=== PATIENT | female | born 1955 | race Caucasian/White ===

== ENCOUNTER 2019-10-29 07:50 | Emergency (ER) | payer OTHER ==
[2019-10-29] MEDS ORDERED: Sodium Chloride 0.9% 10 ML Syringe FLUSH PRN (08:14)
--- NOTE | 2019-10-29 08:28 | EDM.PDOC ---
ED HPI GENERAL MEDICAL PROBLEM - General Chief Complaint: Cardiovascular Problem Stated Complaint: LOW PULSE Time Seen by Provider: 10/29/19 08:09 Source of Information: Reports: Patient History Limitations: Reports: No Limitations - History of Present Illness INITIAL COMMENTS - FREE TEXT/NARRATIVE: The patient presents with a slow heart rate and generalized weakness. This has been going on for a couple days. She is a patient at [facility] and she called them and they told her to come in. She has no chest pain or shortness of breath. This has never happened before. She has no history of heart problems. She does have hypertension and had a history of TIA. She quit smoking about 8 years ago. She said her heart rate was in the 30s last night. She took her pulse with a blood pressure cuff. She has no fever, chills, cough, congestion, runny nose, abdominal pain, nausea or vomiting. Onset: Gradual Duration: Day(s): Severity: Moderate Improves with: Reports: None Worsens with: Reports: None Associated Symptoms: Reports: No Other Symptoms - Related Data Allergies Allergy/AdvReac Type Severity Reaction Status Date / Time Latex, Natural Rubber Allergy Rash Verified 10/29/19 07:59 Tetanus Vaccines and Toxoid Allergy Itching Verified 10/29/19 07:59 timolol Allergy Difficulty Verified 10/29/19 08:00 Breathing Home Meds: Home Meds Betaxolol HCl 1 drop EYEBOTH BID 10/29/19 [History] Brimonidine [Alphagan 0.2% Ophth Soln] 1 drop EYERT DAILY 10/29/19 [History] Latanoprost 1 drop EYERT BEDTIME 10/29/19 [History] Losartan [Cozaar] 25 mg PO DAILY 10/29/19 [History] atorvaSTATin [Lipitor] 40 mg PO DAILY 10/29/19 [History] Past Medical History - Past Health History Medical/Surgical History: Denies Medical/Surgical History Cardiovascular History: Reports: High Cholesterol, Hypertension Respiratory History: Reports: None Gastrointestinal History: Reports: None Genitourinary History: Reports: None 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 Denies: Fever, Chills HEENT: Reports: No Symptoms Respiratory: Reports: No Symptoms Cardiovascular: Reports: Other (Low heart rate) Endocrine: Reports: No Symptoms GI/Abdominal: Reports: No Symptoms : Reports: No Symptoms Musculoskeletal: Reports: No Symptoms ED EXAM, GENERAL - Physical Exam Exam: See Below Exam Limited By: No Limitations General Appearance: Alert, No Apparent Distress Ears: Normal External Exam Nose: Normal Inspection Head: Atraumatic, Normocephalic Neck: Normal Inspection Respiratory/Chest: No Respiratory Distress, Lungs Clear, Normal Breath Sounds Cardiovascular: Regular Rate, Rhythm, No Edema, No Murmur GI/Abdominal: Soft, Non-Tender, No Organomegaly, No Mass Back Exam: Normal Inspection Extremities: Normal Inspection Neurological: Alert, Oriented, No Motor/Sensory Deficits EKG INTERPRETATION EKG Date: 10/29/19 Time: 08:07 Rhythm: Other (3rd degree AV block) Rate (Beats/Min): 40 [place]: Normal P-Wave: Present QRS: Normal ST-T: Normal QT: Normal NH/PQ Interval: 3rd degree AV block Course - Vital Signs Last Recorded V/S: Last Vital Signs Temp 97.8 F 10/29/19 07:57 Pulse 88 10/29/19 07:57 Resp 16 10/29/19 07:57 BP 166/75 H 10/29/19 07:57 Pulse Ox 96 10/29/19 07:57 - Orders/Labs/Meds Orders: Active Orders 24 hr Category Date Time Status Cardiac Monitoring [RC] . DIRECTED Care 10/29/19 08:14 Active EKG Documentation Completion [RC] STAT Care 10/29/19 08:15 Active Peripheral IV Care [RC] . DIRECTED Care 10/29/19 08:15 Active Chest 1V Frontal [CR] Stat Exams 10/29/19 08:15 Ordered COMPREHENSIVE METABOLIC PN,CMP [CHEM] Stat Lab 10/29/19 08:05 Received TROPONIN I [CHEM] Stat Lab 10/29/19 08:05 Received Atropine [Atropine 0.1 MG/ML] Med 10/29/19 08:40 Once 0.5 mg IVPUSH ONETIME ONE Sodium Chloride 0.9% [Saline Flush] Med 10/29/19 08:14 Active 10 ml FLUSH ASDIRECTED PRN Peripheral IV Insertion Adult [OM.PC] Stat Oth 10/29/19 08:14 Ordered Medication Orders Sodium Chloride (Saline Flush) 10 ml FLUSH ASDIRECTED PRN PRN Reason: Keep Vein Open Last Admin: 10/29/19 08:27 Dose: 10 ml Labs: Laboratory Tests 10/29/19 Range/Units 08:05 WBC 7.06 (3.98-10.04) K/mm3 RBC 4.99 (3.98-5.22) M/mm3 Hgb 14.2 (11.2-15.7) gm/dl Hct 43.2 (34.1-44.9) % MCV 86.6 (79.4-94.8) fl MCH 28.5 (25.6-32.2) pg MCHC 32.9 (32.2-35.5) g/dl RDW Std Deviation 45.6 (36.4-46.3) fL Plt Count 255 (182-369) K/mm3 MPV 11.4 (9.4-12.3) fl Neut % (Auto) 67.1 (34.0-71.1) % Lymph % (Auto) 24.5 (19.3-51.7) % [place] % (Auto) 6.9 (4.7-12.5) % Eos % (Auto) 1.1 (0.7-5.8) Baso % (Auto) 0.3 (0.1-1.2) % Neut # (Auto) 4.73 (1.56-6.13) K/mm3 Lymph # (Auto) 1.73 (1.18-3.74) K/mm3 [place] # (Auto) 0.49 H (0.24-0.36) K/mm3 Eos # (Auto) 0.08 (0.04-0.36) K/mm3 Baso # (Auto) 0.02 (0.01-0.08) K/mm3 Meds: Medications Generic Name Dose Route Start Last Admin Trade Name Freq PRN Reason Stop Dose Admin Sodium Chloride 10 ml 10/29/19 08:14 10/29/19 08:27 Saline Flush FLUSH 10 ml ASDIRECTED PRN Administration Keep Vein Open - Re-Assessments/Exams Free Text/Narrative Re-Assessment/Exam: 10/29/19 08:33 I ordered an IV saline lock, EKG, CXR and labs. Her EKG shows a 3rd degree HB at a rate of 40. On the monitor she is up in the 70s most of the time. I called [facility] in [place] and the consulting solution director Dr Flores wanted a copy of the EKG sent to her. 10/29/19 08:40 Dr Flores did accept her on consult and I talked with Dr Bowser the hospitalist call or contact centre manager and he also accepted the patient. Dr Flores did recommend trying some atropine if her heart rate stays low and pacing if that does not help. The patient's heart rate did sty in the 40s and 30s so I gave atropine 0.5mg IV and her heart rate is in the 80s and still a 3rd degree HB. Departure - Departure Time of Disposition: 08:50 Disposition: DC/Tfer to Acute Hospital 02 Reason for Transfer *Q: Other (pacemaker) Condition: Fair Clinical Impression: Third degree heart block Referrals: Eveline Khan MD [Primary Care Provider] - Forms: ED Department Discharge Sepsis Event Note - Evaluation Sepsis Screening Result: No Definite Risk - Focused Exam Vital Signs: Vital Signs Temp Pulse Resp BP Pulse Ox 10/29/19 07:57 97.8 F 88 16 166/75 H 96 Date Exam was Performed: 10/29/19 Time Exam was Performed: 08:40 - My Orders Last 24 Hours: My Active Orders 10/29/19 08:05 COMPREHENSIVE METABOLIC PN,CMP [CHEM] Stat TROPONIN I [CHEM] Stat 10/29/19 08:14 Cardiac Monitoring [RC] . DIRECTED Sodium Chloride 0.9% [Saline Flush] 10 ml FLUSH ASDIRECTED PRN Peripheral IV Insertion Adult [OM.PC] Stat 10/29/19 08:15 EKG Documentation Completion [RC] STAT Peripheral IV Care [RC] . DIRECTED Chest 1V Frontal [CR] Stat 10/29/19 08:40 Atropine [Atropine 0.1 MG/ML] 0.5 mg IVPUSH ONETIME ONE - Assessment/Plan Last 24 Hours: My Active Orders 10/29/19 08:05 COMPREHENSIVE METABOLIC PN,CMP [CHEM] Stat TROPONIN I [CHEM] Stat 10/29/19 08:14 Cardiac Monitoring [RC] . DIRECTED Sodium Chloride 0.9% [Saline Flush] 10 ml FLUSH ASDIRECTED PRN Peripheral IV Insertion Adult [OM.PC] Stat 10/29/19 08:15 EKG Documentation Completion [RC] STAT Peripheral IV Care [RC] . DIRECTED Chest 1V Frontal [CR] Stat 10/29/19 08:40 Atropine [Atropine 0.1 MG/ML] 0.5 mg IVPUSH ONETIME ONE
[2019-10-29] MEDS ORDERED: Atropine 0.1 MG/ML 10 ML Syringe IVPUSH ONE (08:40)
[2019-10-29] MEDS ORDERED: Atropine 0.1 MG/ML 10 ML Syringe ONE (08:41)
--- NOTE | 2019-10-29 09:10 | CR ---
Chest: Portable view of the chest was obtained. Comparison: Prior chest x-ray of 05/21/18. Heart size is within normal limits for portable technique. Tortuous thoracic aorta is seen. Lungs are clear with no acute parenchymal change. Bony structures are grossly intact. Impression: 1. Nothing acute is appreciated on portable chest x-ray. Diagnostic code #1 This report was dictated in MDT
== END 2019-10-29 09:40 ==
LOC: JD.ED 07:50
DX: I44.2 Atrioventricular block, complete (principal); I10 Essential (primary) hypertension; E78.00 Pure hypercholesterolemia, unspecified; Z86.73 Personal history of transient ischemic attack (TIA), and cerebral infarction without residual deficits; Z87.891 Personal history of nicotine dependence; Z91.040 Latex allergy status; Z88.7 Allergy status to serum and vaccine; Z88.8 Allergy status to other drugs, medicaments and biological substances; Z79.899 Other long term (current) drug therapy
CPT/HCPCS: 36415; 71045; 80053; 84484; 85025; 93005; 96374; 99285; J0461

== ENCOUNTER 2019-11-13 16:49 | Emergency (ER) | payer OTHER ==
--- NOTE | 2019-11-13 17:06 | EDM.PDOC ---
ED HPI GENERAL MEDICAL PROBLEM - General Chief Complaint: Chest Pain Stated Complaint: CHEST PAIN Time Seen by Provider: 11/13/19 17:04 Source of Information: Reports: Patient History Limitations: Reports: No Limitations - History of Present Illness INITIAL COMMENTS - FREE TEXT/NARRATIVE: 64-year-old female attends the ED just generally because she is not feeling well. She reports she was out at a garage sale and had bent over to look at something when she suddenly developed mid central chest pain that radiated up into her neck and jaw. She believes this lasted for about 2 to 3 minutes and then dissipated on its own. However since that time she is not felt well. Of note the patient had a atrial sensing ventricular pacemaker placed 2 weeks ago due to complete heart block. Before that she been extremely fatigued tired and played out very easily. Denies feeling short of breath. Denies cough or any pleuritic chest pain. Not dizzy or lightheaded. At the time she was seen in the ED she was completely pain-free. She estimates that she started to feel this Saturday and mid chest discomfort about 1530 hrs. today. Ports no reflux. She never takes Tums or Rolaids. Last meal was at noon today. 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 (see below) (None.) - Related Data Allergies Allergy/AdvReac Type Severity Reaction Status Date / Time Latex, Natural Rubber Allergy Severe Rash Verified 11/13/19 16:54 Tetanus Vaccines and Toxoid Allergy Severe Itching Verified 11/13/19 16:54 timolol Allergy Severe Difficulty Verified 11/13/19 16:54 Breathing Home Meds: Home Meds Betaxolol HCl 1 drop EYEBOTH BID 10/29/19 [History] Brimonidine [Alphagan 0.2% Ophth Soln] 1 drop EYERT DAILY 10/29/19 [History] Latanoprost 1 drop EYERT BEDTIME 10/29/19 [History] Losartan [Cozaar] 25 mg PO DAILY 10/29/19 [History] atorvaSTATin [Lipitor] 40 mg PO DAILY 10/29/19 [History] Aspirin 325 mg PO DAILY 11/13/19 [History] Past Medical History - Past Health History Medical/Surgical History: Denies Medical/Surgical History HEENT History: Reports: Glaucoma (Audible drops for glaucoma in both eyes.) Cardiovascular History: Reports: High Cholesterol, Hypertension, Pacemaker (Pacemaker placed 2 weeks ago due to complete heart block) Respiratory History: Reports: None Gastrointestinal History: Reports: None Genitourinary History: Reports: None OFFICE SUPPORT SPECIALIST History: Reports: None Musculoskeletal History: Reports: None Neurological History: Reports: TIA - Past Surgical History HEENT Surgical History: Reports: Cataract Surgery, Other (See Below) Other HEENT Surgeries/Procedures: dental implants Social & Family History - Tobacco Use Smoking Status *Q: Former Smoker Used Tobacco, but Quit: Yes Month/Year Tobacco Last Used: 2011 - Caffeine Use Caffeine Use: Reports: Coffee - Recreational Drug Use Recreational Drug Use: No - Living Situation & Occupation Living situation: Reports: (Self-employed) Occupation: Employed ED ROS GENERAL - Review of Systems Review Of Systems: See Below Constitutional: Reports: Fatigue (More fatigued today than she has been.). 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 Lasted about 2 minutes), Blood Pressure Problem, Other (Pacemaker placed left upper anterior chest). Denies: Claudication, Dyspnea on Exertion, Edema, Lightheadedness, Orthopnea, Palpitations Endocrine: Reports: Fatigue GI/Abdominal: Reports: No Symptoms : Reports: Frequency, Incontinence Musculoskeletal: Reports: Back Pain Skin: Reports: No Symptoms Neurological: Reports: No Symptoms Psychiatric: Reports: No Symptoms Hematologic/Lymphatic: Reports: No Symptoms ED EXAM, GENERAL - Physical Exam Exam: See Below Exam Limited By: No Limitations General Appearance: Alert, WD/WN, Anxious, Other (Mildly anxious. She is 36.9 heart rate 71 respiratory is 13 BP 168/88 . Pulse ox is 97%.) Eye Exam: Bilateral Eye: Normal Inspection, PERRL Neck: No: Carotid Bruit, Lymphadenopathy (L), Lymphadenopathy (R), Thyromegaly Respiratory/Chest: No Respiratory Distress, Lungs Clear, Normal Breath Sounds, No Accessory Muscle Use, Other (Pacemaker site left upper anterior chest placed 2 weeks ago is healing very well.) Cardiovascular: Normal Peripheral Pulses, Regular Rate, Rhythm, No Edema, No Gallop, No Murmur, No Rub, Other (Monitor monitor shows ventricular paced rhythm at 70/min.) Peripheral Pulses: 2+: Posterior Tibial (L), Posterior Tibial (R), Dorsalis Pedis (L), Dorsalis Pedis (R), 3+: Carotid (L), Carotid (R) GI/Abdominal: Normal Bowel Sounds, Soft, Non-Tender, No Organomegaly, No Abnormal Bruit, No Mass, Pelvis Stable, Other (No surgical scars.) Back Exam: Normal Inspection, Full Range of Motion. No: CVA Tenderness (L), CVA Tenderness (R) Extremities: Normal Inspection, Normal Range of Motion, Non-Tender, Normal Capillary Refill Neurological: Alert, Oriented, CN II-XII Intact, Normal Cognition Psychiatric: Normal Affect (Anxious), Normal Mood, Anxious Skin Exam: Warm, Dry, Intact, Normal Color, No Rash EKG INTERPRETATION EKG Date: 11/13/19 Time: 16:52 Rhythm: Other (Atrial sensed -ventricular paced rhythm at 70/min) Rate (Beats/Min): 70 EKG Interpretation Comments: Regular paced rhythm at 70/min. No further analysis attempted. Course - Vital Signs Last Recorded V/S: Last Vital Signs Temp 36.9 C 11/13/19 16:54 Pulse 61 11/13/19 18:20 Resp 16 11/13/19 18:20 BP 121/81 11/13/19 18:20 Pulse Ox 94 L 11/13/19 18:20 - Orders/Labs/Meds Labs: Laboratory Tests 11/13/19 11/13/19 11/13/19 Range/Units 17:34 17:34 17:34 WBC 7.41 (3.98-10.04) K/mm3 RBC 5.02 (3.98-5.22) M/mm3 Hgb 14.4 (11.2-15.7) gm/dl Hct 43.2 (34.1-44.9) % MCV 86.1 (79.4-94.8) fl MCH 28.7 (25.6-32.2) pg MCHC 33.3 (32.2-35.5) g/dl RDW Std Deviation 42.5 (36.4-46.3) fL Plt Count 276 (182-369) K/mm3 MPV 10.4 (9.4-12.3) fl Neut % (Auto) 55.4 (34.0-71.1) % Lymph % (Auto) 32.4 (19.3-51.7) % [place] % (Auto) 9.7 (4.7-12.5) % Eos % (Auto) 1.6 (0.7-5.8) Baso % (Auto) 0.8 (0.1-1.2) % Neut # (Auto) 4.10 (1.56-6.13) K/mm3 Lymph # (Auto) 2.40 (1.18-3.74) K/mm3 [place] # (Auto) 0.72 H (0.24-0.36) K/mm3 Eos # (Auto) 0.12 (0.04-0.36) K/mm3 Baso # (Auto) 0.06 (0.01-0.08) K/mm3 D-Dimer, Quantitative 1.49 H (0.19-0.50) mg/L Sodium 144 (136-145) mEq/L Potassium 4.0 (3.5-5.1) mEq/L Chloride 108 H (98-107) mEq/L Carbon Dioxide 24 (21-32) mEq/L Anion Gap 16.0 H (5-15) BUN 13 (7-18) mg/dL Creatinine 1.0 (0.55-1.02) mg/dL Est Cr Clr Drug Dosing 53.91 mL/min Estimated GFR (MDRD) 56 (>60) mL/min BUN/Creatinine Ratio 13.0 L (14-18) Glucose 88 (80-115) mg/dL Calcium 9.3 (8.5-10.1) mg/dL Magnesium 2.2 (1.8-2.4) mg/dl Total Bilirubin 0.4 (0.2-1.0) mg/dL AST 26 (15-37) U/L ALT 50 (14-59) U/L Alkaline Phosphatase 165 H (46-116) U/L CK-MB (CK-2) 1.8 (0-3.6) ng/ml Troponin I < 0.017 (0.00-0.056) ng/mL C-Reactive Protein < 0.2 (<1.0) mg/dL NT-Pro-B Natriuret Pep (0-125) pg/mL Total Protein 7.0 (6.4-8.2) g/dl Albumin 4.0 (3.4-5.0) g/dl Globulin 3.0 gm/dL Albumin/Globulin Ratio 1.3 (1-2) 11/13/19 Range/Units 17:34 WBC (3.98-10.04) K/mm3 RBC (3.98-5.22) M/mm3 Hgb (11.2-15.7) gm/dl Hct (34.1-44.9) % MCV (79.4-94.8) fl MCH (25.6-32.2) pg MCHC (32.2-35.5) g/dl RDW Std Deviation (36.4-46.3) fL Plt Count (182-369) K/mm3 MPV (9.4-12.3) fl Neut % (Auto) (34.0-71.1) % Lymph % (Auto) (19.3-51.7) % [place] % (Auto) (4.7-12.5) % Eos % (Auto) (0.7-5.8) Baso % (Auto) (0.1-1.2) % Neut # (Auto) (1.56-6.13) K/mm3 Lymph # (Auto) (1.18-3.74) K/mm3 [place] # (Auto) (0.24-0.36) K/mm3 Eos # (Auto) (0.04-0.36) K/mm3 Baso # (Auto) (0.01-0.08) K/mm3 D-Dimer, Quantitative (0.19-0.50) mg/L Sodium (136-145) mEq/L Potassium (3.5-5.1) mEq/L Chloride (98-107) mEq/L Carbon Dioxide (21-32) mEq/L Anion Gap (5-15) BUN (7-18) mg/dL Creatinine (0.55-1.02) mg/dL Est Cr Clr Drug Dosing mL/min Estimated GFR (MDRD) (>60) mL/min BUN/Creatinine Ratio (14-18) Glucose (80-115) mg/dL Calcium (8.5-10.1) mg/dL Magnesium (1.8-2.4) mg/dl Total Bilirubin (0.2-1.0) mg/dL AST (15-37) U/L ALT (14-59) U/L Alkaline Phosphatase (46-116) U/L CK-MB (CK-2) (0-3.6) ng/ml Troponin I (0.00-0.056) ng/mL C-Reactive Protein (<1.0) mg/dL NT-Pro-B Natriuret Pep 65 (0-125) pg/mL Total Protein (6.4-8.2) g/dl Albumin (3.4-5.0) g/dl Globulin gm/dL Albumin/Globulin Ratio (1-2) Meds: Medications Discontinued Medications Generic Name Dose Route Start Last Admin Trade Name Freq PRN Reason Stop Dose Admin Sodium Chloride 100 mls @ 60 mls/hr 11/13/19 19:00 11/13/19 19:14 Normal Saline IV 60 mls/hr ASDIRECTED KAI Administration Iopamidol 100 ml 11/13/19 19:00 11/13/19 19:14 [id number] (76%) IVPUSH 11/13/19 19:01 100 ml ONETIME ONE Administration Sodium Chloride 10 ml 11/13/19 19:00 11/13/19 19:14 Saline Flush FLUSH 10 ml ONETIME PRN Administration Keep Vein Open - Radiology Interpretation Free Text/Narrative:: 64-year-old female presents to the ED for evaluation of transient central chest pain that radiated up into her neck and jaw about 1530 to 1540 hours this afternoon. She was bending over at the time and a garage sale looking at something when this occurred. She developed the chest pain when she was bending over and as she stood up it seemed to radiate up into her jaw and neck. It lasted for only a minute or 2 and then dissipated. However since that time she is not felt quite well. She did have a pacemaker placed 2 weeks ago due to complete heart block and was feeling overall better in terms of stamina compared to before it was placed. ECG of course shows 100% paced rhythm at 70/min. The rest of the examination is normal. Plan routine labs including cardiac markers and d-dimer. 1 view chest x-ray to be done. - Re-Assessments/Exams Free Text/Narrative Re-Assessment/Exam: 11/13/19 18:02 chest x-ray performed is clear. Minimal atelectasis within the left lung base cardiac silhouette is normal. Tortuous thoracic aorta. (Liana tony) atrial and ventricular pacemaker wires appear to be in the appropriate position. 11/13/19 18:03 Hematology reveals a normal white count at 7.41. 55% neutrophils. Hemoglobin 14.4 with hematocrit of 43.2. Platelet count 276,000. 11/13/19 18:20 d-dimer is reported to be elevated at 1.49. Her renal function and the remainder of her chemistry is not yet reported. 11/13/19 18:29 Chemistry is back. Sodium is 144 with a potassium of 4.0. Chloride is 108 with a bicarb of 24. Anion gap is slightly elevated at 16.0. BUN is 13 with a creatinine of 1.0 GFR is 56. Therefore no contraindication to CT pulmonary angiogram. Glucose is 88 with a calcium of 9.3. Magnesium 2.2. Liver function normal other than alk phosphatase slightly elevated at 165. CK- MB fraction 1.8 troponin I is less than 0.017. C-reactive protein less than 0.2. BNP is 65. Total protein 7.0 with an albumin fraction of 4.0. 11/13/19 18:35 Discussed the findings with the patient and her . The elevated d-dimer is most likely from recent pacemaker placement although it was 2 weeks ago. She has no bruising around the pacemaker site. Will proceed with CT pulmonary angiogram to rule out PE. O2 sats are staying around 94% on average. 11/13/19 19:36 CT pulmonary angiogram has been completed. I assessment I do not see any evidence of pulmonary emboli. There is moderate cardiomegaly. Thoracic aorta is mildly tortuous but not aneurysmal. Old hiatal hernia appreciated. No pleural effusions. Reassured and she will be discharged to home. I suspect the cause of her short-lived transient chest pain while bending over was likely GI related i.e. hiatal hernia causing some esophageal spasm more pain at the lower esophageal sphincter referring the pain up into her neck and throat transiently. No changes made to any of her medications. Departure - Departure Time of Disposition: 19:37 Disposition: Home, Self-Care 01 Condition: Fair Clinical Impression: Non-cardiac chest pain Instructions: Nonspecific Chest Pain, Adult Referrals: Eveline Khan MD [Primary Care Provider] - Forms: ED Department Discharge Additional Instructions: Evaluation in the emergency room today in regards to development of central chest pressure discomfort that radiated up into the neck and jaw after bending over to look at something on a garage sale. Pain lasted 1 to 2 minutes and then dissipated. By history this sounds like this was GI related I have the stomach slipping up into the opening where the food pipe traverses the diaphragm will refer pain up into the neck and throat and central chest or the esophagus itself could go into spasm and cause similar type pain. The fact that the pain was fleeting is against heart related illness as blood clot in the artery causes persistent and worsening pain over time. Lab test would prove that there was no evidence of heart related illness. Chest x-ray is within normal limits. This shows her pacemaker wires to be in normal position. The only abnormality was a slightly elevated d-dimer which is a measuring stick for blood clotting with it being almost 3 times normal decision made to pursue CT pulmonary angiogram to make sure there was no blood clot in your lung following pacemaker insertion. T of the chest proved to be negative for any blood clot in the lungs. This time suggest no changes in diet or medication. Activity as tolerated. The only thing you should watch out for is carbonated beverages such as soda pop that might aggravate a hiatal hernia. Sepsis Event Note (ED) - Evaluation Sepsis Screening Result: No Definite Risk
--- NOTE | 2019-11-13 18:52 | CR ---
Chest: PA view of the chest was obtained. Comparison: Prior chest x-ray of 10/29/19. Heart size is normal. Tortuous thoracic aorta is seen. Bichamber pacemaker is noted. Minimal atelectasis within the left lung base is seen. Lungs otherwise are clear. Bony structures are grossly intact. Impression: 1. Minimal atelectasis within the left lung base. 2. Nothing acute is seen. Diagnostic code #2 Study was dictated in MDT
[2019-11-13] MEDS ORDERED: Iopamidol 755 Mg/ML 100 ML Bottle IVPUSH ONE (19:00)
[2019-11-13] MEDS ORDERED: Sodium Chloride 0.9% 100 ML IV SCH (19:00)
[2019-11-13] MEDS ORDERED: Sodium Chloride 0.9% 10 ML Syringe FLUSH PRN (19:00)
--- NOTE | 2019-11-13 19:46 | CT ---
CT chest Technique: Multiple axial sections through the chest were obtained. Intravenous contrast was utilized. Study has been performed as a pulmonary interim protocol. Comparison: Prior chest CT study of 05/06/13. Findings: Pulmonary arteries are well-opacified. No filling defects are seen to indicate pulmonary embolism. Artifact is noted from pacemaker. Ascending aorta is ectatic at 3.4 cm. Heart size is slightly generous. Visualized upper abdominal structures show nothing acute. Minimal linear scarring is seen within both lung bases. No acute parenchymal change is appreciated. No pleural effusions are seen. Bone window settings were reviewed. No acute osseous finding is seen. Impression: 1. No findings of pulmonary embolism. 2. Slight linear scarring within both lung bases. 3. Nothing acute is appreciated on CT study of the chest. Diagnostic code #2 Study was dictated in MDT
== END 2019-11-13 19:51 | disposition home or self-care (01) ==
LOC: JD.ED 16:49
DX: R07.89 Other chest pain (principal); I10 Essential (primary) hypertension; E78.00 Pure hypercholesterolemia, unspecified; Z87.891 Personal history of nicotine dependence; Z91.040 Latex allergy status; Z88.7 Allergy status to serum and vaccine; Z88.8 Allergy status to other drugs, medicaments and biological substances; Z79.899 Other long term (current) drug therapy; Z79.82 Long term (current) use of aspirin; Z95.0 Presence of cardiac pacemaker
CPT/HCPCS: 36415; 71045; 71275; 80053; 82553; 83735; 83880; 84484; 85025; 85379; 86140; 99285; J7050; Q9967

== ENCOUNTER 2021-04-02 15:33 | Inpatient (IN) | payer MEDICARE, OTHER ==
[2021-04-02] MEDS ORDERED: Sodium Chloride 0.9% 10 ML Syringe FLUSH PRN (16:42)
--- NOTE | 2021-04-02 17:00 | EDM.PDOC ---
ED HPI GENERAL MEDICAL PROBLEM - General Chief Complaint: Respiratory Problem Stated Complaint: POSS COVID Time Seen by Provider: 04/02/21 16:17 Source of Information: Reports: Patient, RN Notes Reviewed - History of Present Illness INITIAL COMMENTS - FREE TEXT/NARRATIVE: 66 yr old female has been ill for about 8 to 10 days. Her has been ill for about 10 days, states his has also been ill that "whole time". She admits to feeling weak, dizzy, sleeping a lot with frequent cough. Has not been aware of being short of breath but sats on arrival to ED 79% room air. She has had nausea, no vomiting or diarrhea. Unvaccinated - Related Data Allergies Allergy/AdvReac Type Severity Reaction Status Date / Time Latex, Natural Rubber Allergy Severe Rash Verified 04/02/21 16:24 Tetanus Vaccines and Toxoid Allergy Severe Itching Verified 04/02/21 16:24 timolol Allergy Severe Difficulty Verified 04/02/21 16:24 Breathing Home Meds: Home Meds Losartan [Cozaar] 25 mg PO DAILY 10/29/19 [History] atorvaSTATin [Lipitor] 40 mg PO DAILY 10/29/19 [History] Aspirin 325 mg PO DAILY 11/13/19 [History] Metoprolol Succinate 25 mg PO TID 04/02/21 [History] atorvaSTATin Calcium [Atorvastatin Calcium] 40 mg PO BEDTIME 04/02/21 [History] Past Medical History - Past Health History Medical/Surgical History: Denies Medical/Surgical History HEENT History: Reports: Glaucoma Cardiovascular History: Reports: High Cholesterol, Hypertension, Pacemaker Respiratory History: Reports: None Gastrointestinal History: Reports: None Genitourinary History: Reports: None IT COORDINATOR History: Reports: None Musculoskeletal History: Reports: None Neurological History: Reports: TIA - Past Surgical History HEENT Surgical History: Reports: Cataract Surgery, Other (See Below) Other HEENT Surgeries/Procedures: dental implants Social & Family History - Tobacco Use Tobacco Use Status *Q: Never Tobacco User - Caffeine Use Caffeine Use: Reports: Coffee - Recreational Drug Use Recreational Drug Use: No - Living Situation & Occupation Living situation: Reports: (Self-employed) Occupation: Employed ED ROS GENERAL - Review of Systems Review Of Systems: See Below Constitutional: Reports: Fever, Chills HEENT: Reports: No Symptoms Respiratory: Reports: Shortness of Breath (mild), Cough. Denies: Wheezing Cardiovascular: Denies: Chest Pain GI/Abdominal: Reports: Nausea. Denies: Abdominal Pain, Vomiting Musculoskeletal: Reports: Other (generalized achiness). Denies: Shoulder Pain, Arm Pain Skin: Reports: No Symptoms Neurological: Reports: Dizziness, Headache, Weakness (weakness, generalized) ED EXAM, GENERAL - Physical Exam Exam: See Below General Appearance: Alert, No Apparent Distress (on oxygen) Throat/Mouth: Normal Inspection Neck: Supple Respiratory/Chest: Lungs Clear, Respiratory Distress (mild tachypnea). No: Rales, Rhonchi, Wheezing Cardiovascular: Regular Rate, Rhythm GI/Abdominal: Soft, Non-Tender Back Exam: No: CVA Tenderness (L), CVA Tenderness (R) Extremities: Normal Inspection, Normal Range of Motion. No: Pedal Edema, Leg Pain, Increased Warmth Neurological: Alert, Oriented, No Motor/Sensory Deficits Skin Exam: Warm, Dry, Normal Color Course - Vital Signs Last Recorded V/S: Last Vital Signs Temp 100.1 F 04/02/21 16: Pulse 96 04/02/21 16:21 Resp 18 04/02/21 16:21 BP 118/73 04/02/21 16:21 Pulse Ox 92 L 04/02/21 18:44 - Orders/Labs/Meds Orders: Active Orders 24 hr Category Date Time Status Oxygen Therapy [RC] ASDIRECTED Care 04/02/21 18:33 Active Peripheral IV Care [RC] . DIRECTED Care 04/02/21 16:43 Active Sodium Chloride 0.9% [Saline Flush] Med 04/02/21 16:42 Active 10 ml FLUSH ASDIRECTED PRN Peripheral IV Insertion Adult [OM.PC] Stat Oth 04/02/21 16:43 Ordered Medication Orders Sodium Chloride (Sodium Chloride 0.9% 10 Ml Syringe) 10 ml FLUSH ASDIRECTED PRN PRN Reason: Keep Vein Open Last Admin: 04/02/21 17:33 Dose: 10 ml Documented by: CHARLES Labs: Laboratory Tests 04/02/21 04/02/21 04/02/21 Range/Units 16:18 17:05 17:05 WBC 8.08 (3.98-10.04) K/mm3 RBC 5.12 (3.98-5.22) M/mm3 Hgb 14.2 (11.2-15.7) gm/dl Hct 41.6 (34.1-44.9) % MCV 81.3 D (79.4-94.8) fl MCH 27.7 (25.6-32.2) pg MCHC 34.1 (32.2-35.5) g/dl RDW Std Deviation 40.6 (36.4-46.3) fL Plt Count 215 (182-369) K/mm3 MPV 9.6 (9.4-12.3) fl Neut % (Auto) 83.3 H (34.0-71.1) % Lymph % (Auto) 10.8 L (19.3-51.7) % [place] % (Auto) 5.7 (4.7-12.5) % Eos % (Auto) 0 L (0.7-5.8) Baso % (Auto) 0.1 (0.1-1.2) % Neut # (Auto) 6.73 H (1.56-6.13) K/mm3 Lymph # (Auto) 0.87 L (1.18-3.74) K/mm3 [place] # (Auto) 0.46 H (0.24-0.36) K/mm3 Eos # (Auto) 0.00 L (0.04-0.36) K/mm3 Baso # (Auto) 0.01 (0.01-0.08) K/mm3 Manual Slide Review D-Dimer, Quantitative (0.19-0.50) mg/L Sodium (136-145) mEq/L Potassium (3.5-5.1) mEq/L Chloride (98-107) mEq/L Carbon Dioxide (21-32) mEq/L Anion Gap (5-15) BUN (7-18) mg/dL Creatinine (0.55-1.02) mg/dL Est Cr Clr Drug Dosing mL/min Estimated GFR (MDRD) (>60) mL/min BUN/Creatinine Ratio (14-18) Glucose (70-99) mg/dL Calcium (8.5-10.1) mg/dL Total Bilirubin (0.2-1.0) mg/dL AST (15-37) U/L ALT (14-59) U/L Alkaline Phosphatase (46-116) U/L C-Reactive Protein 8.7 H* (<1.0) mg/dL Total Protein (6.4-8.2) g/dl Albumin (3.4-5.0) g/dl Globulin gm/dL Albumin/Globulin Ratio (1-2) Influenza Type A RNA Negative (NEGATIVE) Influenza Type B RNA Negative (NEGATIVE) SARS-CoV-2 RNA (QUINN) Positive H (NEGATIVE) 04/02/21 04/02/21 Range/Units 17:05 17:05 WBC (3.98-10.04) K/mm3 RBC (3.98-5.22) M/mm3 Hgb (11.2-15.7) gm/dl Hct (34.1-44.9) % MCV (79.4-94.8) fl MCH (25.6-32.2) pg MCHC (32.2-35.5) g/dl RDW Std Deviation (36.4-46.3) fL Plt Count (182-369) K/mm3 MPV (9.4-12.3) fl Neut % (Auto) (34.0-71.1) % Lymph % (Auto) (19.3-51.7) % [place] % (Auto) (4.7-12.5) % Eos % (Auto) (0.7-5.8) Baso % (Auto) (0.1-1.2) % Neut # (Auto) (1.56-6.13) K/mm3 Lymph # (Auto) (1.18-3.74) K/mm3 [place] # (Auto) (0.24-0.36) K/mm3 Eos # (Auto) (0.04-0.36) K/mm3 Baso # (Auto) (0.01-0.08) K/mm3 Manual Slide Review D-Dimer, Quantitative 1.43 H (0.19-0.50) mg/L Sodium 128 L D (136-145) mEq/L Potassium 3.7 (3.5-5.1) mEq/L Chloride 93 L D (98-107) mEq/L Carbon Dioxide 24 (21-32) mEq/L Anion Gap 14.7 (5-15) BUN 13 (7-18) mg/dL Creatinine 1.0 (0.55-1.02) mg/dL Est Cr Clr Drug Dosing 50.47 mL/min Estimated GFR (MDRD) 56 (>60) mL/min BUN/Creatinine Ratio 13.0 L (14-18) Glucose 101 H (70-99) mg/dL Calcium 8.0 L (8.5-10.1) mg/dL Total Bilirubin 0.7 (0.2-1.0) mg/dL AST 64 H (15-37) U/L ALT 41 (14-59) U/L Alkaline Phosphatase 89 (46-116) U/L C-Reactive Protein (<1.0) mg/dL Total Protein 6.6 (6.4-8.2) g/dl Albumin 3.0 L (3.4-5.0) g/dl Globulin 3.6 gm/dL Albumin/Globulin Ratio 0.8 L (1-2) Influenza Type A RNA (NEGATIVE) Influenza Type B RNA (NEGATIVE) SARS-CoV-2 RNA (QUINN) (NEGATIVE) Meds: Medications Generic Name Dose Route Start Last Admin Trade Name Freq PRN Reason Stop Dose Admin Sodium Chloride 10 ml 04/02/21 16:42 04/02/21 17:33 Sodium Chloride 0.9% 10 Ml Syringe FLUSH 10 ml ASDIRECTED PRN Administration Keep Vein Open Discontinued Medications Generic Name Dose Route Start Last Admin Trade Name Freq PRN Reason Stop Dose Admin Dexamethasone 6 mg 04/02/21 18:53 04/02/21 19:31 Dexamethasone 4 Mg/Ml 5 Ml Mdv IV 04/02/21 18:54 6 mg ONETIME ONE Administration - Re-Assessments/Exams Free Text/Narrative Re-Assessment/Exam: 04/02/21 19:34. WBC 8,100, CXR shows increased perihilar markings bila. CRP 8.7. DD 1.43. Cov. Positive. O2 79 % on arrival room air. sats came up to 92 % initially on 6 L NC and than dropped to mid 80's. RT did put her on high flow O2. sats 92 % with 35 L fiO2. Will admit for further treatment. Dex. 6 mg IV ordered. Departure - Departure Time of Disposition: 18:40 Disposition: Home, Self-Care 01 Condition: Serious Clinical Impression: Pneumonia due to COVID-19 virus, Hypoxia, Hyponatremia - Discharge Information Referrals: PCP,Not In Area [Primary Care Provider] - Forms: ED Department Discharge Sepsis Event Note (ED) - Evaluation Sepsis Screening Result: No Definite Risk - Focused Exam Vital Signs: Vital Signs Temp Pulse Resp BP Pulse Ox Pulse Ox Pulse Ox 04/02/21 18:44 92 L 04/02/21 18:31 93 L 04/02/21 18:25 86 L 04/02/21 18:24 88 L 04/02/21 18:23 86 L 04/02/21 16:21 100.1 F 96 18 118/73 79 L ED Communication - Discussed Case With (1) Discussed Case With (1): Admitting Provider (Dr Ordaz, decision to admit at about 18:40) - My Orders Last 24 Hours: My Active Orders 04/02/21 16:42 Sodium Chloride 0.9% [Saline Flush] 10 ml FLUSH ASDIRECTED PRN 04/02/21 16:43 Peripheral IV Care [RC] . DIRECTED Peripheral IV Insertion Adult [OM.PC] Stat 04/02/21 18:33 Oxygen Therapy [RC] ASDIRECTED - Assessment/Plan Last 24 Hours: My Active Orders 04/02/21 16:42 Sodium Chloride 0.9% [Saline Flush] 10 ml FLUSH ASDIRECTED PRN 04/02/21 16:43 Peripheral IV Care [RC] . DIRECTED Peripheral IV Insertion Adult [OM.PC] Stat 04/02/21 18:33 Oxygen Therapy [RC] ASDIRECTED
[2021-04-02 17:23] LABS: CORONAVIRUS COVID-19 NAA POSITIVE (NEGATIVE)
--- NOTE | 2021-04-02 17:48 | CR ---
Chest: Frontal view of the chest was obtained. Comparison: Prior chest x-ray of 11/13/[address] also from 11/13/19. Heart size and mediastinum are within normal limits. Perihilar markings are increased on the left side. Perihilar markings are also minimally increased on the right side. Bony structures show nothing acute. Pacemaker is noted. Impression: 1. Findings suspicious for mild bilateral bronchitis, worse on the left side. 2. Other incidental findings as noted above. Diagnostic code #3
[2021-04-02] MEDS ORDERED: Dexamethasone 4 MG/ML 5 ML MDV IV ONE (18:53)
[2021-04-02] MEDS ORDERED: Ondansetron 4 MG/2 ML SDV IV PRN (20:49)
[2021-04-02] MEDS ORDERED: oxyCODONE 5 MG Tab PO PRN (20:49)
[2021-04-02] MEDS ORDERED: Metoprolol Succinate 25 MG Tab.ER PO SCH (21:00)
[2021-04-02] MEDS ORDERED: REMDESIVIR 200 MG in Sodium Chloride 0.9% 250 ML IV ONE (21:00)
--- NOTE | 2021-04-02 21:01 | PCM.HP.2 ---
H&P History of Present Illness - General Date of Service: 04/02/21 Admit Problem/Dx: Admission Diagnosis/Problem Admission Diagnosis/Problem Pneumonia - History of Present Illness Initial Comments - Free Text/Narative: 66-year-old female whose developed COVID-19 14 days ago started becoming fatigued around 11 days ago. She states over the last couple of days she has had increasing fatigue, weakness, dizziness, and cough. She denies any fever or chills or shortness of breath. Her today talked her into coming to the emergency department after standing up and becoming dizzy. Patient was not vaccinated against COVID-19. Oxygen saturations on arrival to the emergency department were 79%. Chest x-ray showed mild bilateral bronchitis worse on the left. No significant findings consistent with COVID-19 pneumonia. Patient is requiring high flow nasal cannula at 35 L and 50% FiO2. She stopped smoking in 2011. Patient states that she does have a pacemaker but no history of coronary disease or myocardial infarction. Past medical history includes hypertension, hyperlipidemia, glaucoma. - Related Data Allergies/Adverse Reactions: Allergies Allergy/AdvReac Type Severity Reaction Status Date / Time Latex, Natural Rubber Allergy Severe Rash Verified 04/02/21 16:24 Tetanus Vaccines and Toxoid Allergy Severe Itching Verified 04/02/21 16:24 timolol Allergy Severe Difficulty Verified 04/02/21 16:24 Breathing Home Medications: Home Meds Losartan [Cozaar] 25 mg PO DAILY 10/29/19 [History] atorvaSTATin [Lipitor] 40 mg PO DAILY 10/29/19 [History] Aspirin 325 mg PO DAILY 11/13/19 [History] Metoprolol Succinate 25 mg PO TID 04/02/21 [History] atorvaSTATin Calcium [Atorvastatin Calcium] 40 mg PO BEDTIME 04/02/21 [History] Past Medical History - Past Health History Medical/Surgical History: Denies Medical/Surgical History HEENT History: Reports: Glaucoma Cardiovascular History: Reports: High Cholesterol, Hypertension, Pacemaker Respiratory History: Reports: None Gastrointestinal History: Reports: None Genitourinary History: Reports: None CHECKER DUMP GROUNDS History: Reports: None Musculoskeletal History: Reports: None Neurological History: Reports: TIA - Past Surgical History HEENT Surgical History: Reports: Cataract Surgery, Other (See Below) Other HEENT Surgeries/Procedures: dental implants Social & Family History - Tobacco Use Tobacco Use Status *Q: Never Tobacco User - Caffeine Use Caffeine Use: Reports: Coffee - Recreational Drug Use Recreational Drug Use: No - Living Situation & Occupation Living situation: Reports: (Self-employed) Occupation: Employed H&P Review of Systems - Review of Systems: Review Of Systems: Comprehensive ROS is negative, except as noted in HPI. Exam - Exam Exam: See Below - Vital Signs Vital Signs: Last Vital Signs Temp 100.1 F 04/02/21 16:21 Pulse 96 04/02/21 16:21 Resp 18 04/02/21 16:21 BP 118/73 04/02/21 16:21 Pulse Ox 92 L 04/02/21 18:44 Weight: 180 lb - Exam Quality Assessment: Supplemental Oxygen General: Alert, Oriented, 4 HEENT: Conjunctiva Clear, Hearing Intact, Mucosa Moist & [place], Normal Nasal Septum Lungs: Normal Respiratory Effort, Crackles (Throughout both lung mccoy left worse than right) Cardiovascular: Regular Rate, Regular Rhythm GI/Abdominal Exam: Normal Bowel Sounds, Soft, Non-Tender, No Organomegaly, No Distention, No Abnormal Bruit, No Mass Extremities: Normal Inspection, Normal Range of Motion, Non-Tender, No Pedal Edema, Normal Capillary Refill Skin: Warm, Dry, Intact Neuro Extensive - Mental Status: Alert, Oriented x3, Normal Mood/Affect, Normal Cognition, Memory Intact Psychiatric: Alert, Normal Affect, Normal Mood - Patient Data Lab Results Last 24 hrs: Laboratory Results - last 24 hr 04/02/21 04/02/21 04/02/21 Range/Units 16:18 17:05 17:05 WBC 8.08 (3.98-10.04) K/mm3 RBC 5.12 (3.98-5.22) M/mm3 Hgb 14.2 (11.2-15.7) gm/dl Hct 41.6 (34.1-44.9) % MCV 81.3 D (79.4-94.8) fl MCH 27.7 (25.6-32.2) pg MCHC 34.1 (32.2-35.5) g/dl RDW Std Deviation 40.6 (36.4-46.3) fL Plt Count 215 (182-369) K/mm3 MPV 9.6 (9.4-12.3) fl Neut % (Auto) 83.3 H (34.0-71.1) % Lymph % (Auto) 10.8 L (19.3-51.7) % [place] % (Auto) 5.7 (4.7-12.5) % Eos % (Auto) 0 L (0.7-5.8) Baso % (Auto) 0.1 (0.1-1.2) % Neut # (Auto) 6.73 H (1.56-6.13) K/mm3 Lymph # (Auto) 0.87 L (1.18-3.74) K/mm3 [place] # (Auto) 0.46 H (0.24-0.36) K/mm3 Eos # (Auto) 0.00 L (0.04-0.36) K/mm3 Baso # (Auto) 0.01 (0.01-0.08) K/mm3 Manual Slide Review D-Dimer, Quantitative (0.19-0.50) mg/L Sodium (136-145) mEq/L Potassium (3.5-5.1) mEq/L Chloride (98-107) mEq/L Carbon Dioxide (21-32) mEq/L Anion Gap (5-15) BUN (7-18) mg/dL Creatinine (0.55-1.02) mg/dL Est Cr Clr Drug Dosing mL/min Estimated GFR (MDRD) (>60) mL/min BUN/Creatinine Ratio (14-18) Glucose (70-99) mg/dL Calcium (8.5-10.1) mg/dL Total Bilirubin (0.2-1.0) mg/dL AST (15-37) U/L ALT (14-59) U/L Alkaline Phosphatase (46-116) U/L C-Reactive Protein 8.7 H* (<1.0) mg/dL Total Protein (6.4-8.2) g/dl Albumin (3.4-5.0) g/dl Globulin gm/dL Albumin/Globulin Ratio (1-2) Influenza Type A RNA Negative (NEGATIVE) Influenza Type B RNA Negative (NEGATIVE) SARS-CoV-2 RNA (QUINN) Positive H (NEGATIVE) 04/02/21 04/02/21 Range/Units 17:05 17:05 WBC (3.98-10.04) K/mm3 RBC (3.98-5.22) M/mm3 Hgb (11.2-15.7) gm/dl Hct (34.1-44.9) % MCV (79.4-94.8) fl MCH (25.6-32.2) pg MCHC (32.2-35.5) g/dl RDW Std Deviation (36.4-46.3) fL Plt Count (182-369) K/mm3 MPV (9.4-12.3) fl Neut % (Auto) (34.0-71.1) % Lymph % (Auto) (19.3-51.7) % [place] % (Auto) (4.7-12.5) % Eos % (Auto) (0.7-5.8) Baso % (Auto) (0.1-1.2) % Neut # (Auto) (1.56-6.13) K/mm3 Lymph # (Auto) (1.18-3.74) K/mm3 [place] # (Auto) (0.24-0.36) K/mm3 Eos # (Auto) (0.04-0.36) K/mm3 Baso # (Auto) (0.01-0.08) K/mm3 Manual Slide Review D-Dimer, Quantitative 1.43 H (0.19-0.50) mg/L Sodium 128 L D (136-145) mEq/L Potassium 3.7 (3.5-5.1) mEq/L Chloride 93 L D (98-107) mEq/L Carbon Dioxide 24 (21-32) mEq/L Anion Gap 14.7 (5-15) BUN 13 (7-18) mg/dL Creatinine 1.0 (0.55-1.02) mg/dL Est Cr Clr Drug Dosing 50.47 mL/min Estimated GFR (MDRD) 56 (>60) mL/min BUN/Creatinine Ratio 13.0 L (14-18) Glucose 101 H (70-99) mg/dL Calcium 8.0 L (8.5-10.1) mg/dL Total Bilirubin 0.7 (0.2-1.0) mg/dL AST 64 H (15-37) U/L ALT 41 (14-59) U/L Alkaline Phosphatase 89 (46-116) U/L C-Reactive Protein (<1.0) mg/dL Total Protein 6.6 (6.4-8.2) g/dl Albumin 3.0 L (3.4-5.0) g/dl Globulin 3.6 gm/dL Albumin/Globulin Ratio 0.8 L (1-2) Influenza Type A RNA (NEGATIVE) Influenza Type B RNA (NEGATIVE) SARS-CoV-2 RNA (QUINN) (NEGATIVE) Result Diagrams: 04/02/21 17:05 04/02/21 17:05 Sepsis Event Note - Evaluation Sepsis Screening Result: No Definite Risk - Focused Exam Vital Signs: Vital Signs Temp Pulse Resp BP Pulse Ox Pulse Ox Pulse Ox 04/02/21 18:44 92 L 04/02/21 18:31 93 L 04/02/21 18:25 86 L 04/02/21 18:24 88 L 04/02/21 18:23 86 L 04/02/21 16:21 100.1 F 96 18 118/73 79 L - Problem List (1) Hyponatremia SNOMED Code(s): 38111165 ICD Code: E87.1 - HYPO-OSMOLALITY AND HYPONATREMIA Status: Acute Current Visit: Yes (2) Hypoxia SNOMED Code(s): 728754611 ICD Code: R09.02 - HYPOXEMIA Status: Acute Current Visit: Yes (3) Pneumonia due to COVID-19 virus SNOMED Code(s): 712665145406388602 ICD Code: U07.1 - COVID-19; J12.82 - PNEUMONIA DUE TO CORONAVIRUS DISEASE 2019 Status: Acute Current Visit: Yes Problem List Initiated/Reviewed/Updated: Yes Orders Last 24hrs: Active Orders 24 hr Category Date Time Status Patient Status [ADT] Routine ADT 04/02/21 19:51 Active Nurse Communication: Isolation [RC] ASDIRECTED Care 04/02/21 20:50 Ordered Oxygen Therapy [RC] ASDIRECTED Care 04/02/21 18:33 Active Oxygen Therapy [RC] PRN Care 04/02/21 20:49 Ordered Peripheral IV Care [RC] . DIRECTED Care 04/02/21 16:43 Active Positioning, Patient [RC] ASDIRECTED Care 04/02/21 20:51 Ordered RT Incentive Spirometry [RC] ASDIRECTED Care 04/02/21 20:49 Ordered Up ad Brandee [RC] ASDIRECTED Care 04/02/21 20:49 Ordered VTE/DVT Education [RC] PER UNIT ROUTINE Care 04/02/21 20:49 Ordered Vital Signs [RC] Q4H Care 04/02/21 20:49 Ordered Respiratory Care Assess and Treatment [CONS] Routine Cons 04/02/21 20:49 Ordered Fluid Restriction [DIET] Diet 04/03/21 Breakfast Active Regular Diet [DIET] Diet 04/03/21 Breakfast Ordered C-REACTIVE PROTEIN [CHEM] AM Lab 04/03/21 05:11 Ordered CBC WITH AUTO DIFF [HEME] AM Lab 04/03/21 05:11 Ordered CMP [COMPREHENSIVE METABOLIC PN,CMP] [CHEM] AM Lab 04/03/21 05:11 Ordered DD [D-DIMER QUANTITATIVE] [COAG] AM Lab 04/04/21 05:11 Ordered MAGNESIUM [CHEM] AM Lab 04/03/21 05:11 Ordered PHOSPHORUS [CHEM] AM Lab 04/03/21 05:11 Ordered Acetaminophen [TylenoL] Med 04/02/21 20:49 Ordered 650 mg PO Q4H PRN Aspirin Med 04/03/21 09:00 Ordered 325 mg PO DAILY Enoxaparin [Lovenox] Med 04/03/21 09:00 Ordered 40 mg SUBCUT DAILY Losartan [Cozaar] Med 04/03/21 09:00 Ordered 25 mg PO DAILY Metoprolol Succinate [Toprol XL] Med 04/02/21 21:00 Ordered 25 mg PO TID Ondansetron [Zofran] Med 04/02/21 20:49 Ordered 4 mg IV Q6H PRN Remdesivir 100 mg Med 04/03/21 21:00 Ordered Sodium Chloride 0.9% [Normal Saline] 100 ml IV Q24H Remdesivir 200 mg Med 04/02/21 20:49 Ordered Sodium Chloride 0.9% [Normal Saline] 250 ml IV ONETIME Sodium Chloride 0.9% [Saline Flush] Med 04/02/21 16:42 Active 10 ml FLUSH ASDIRECTED PRN atorvaSTATin Calcium [Atorvastatin Calcium] Med 04/02/21 21:00 Ordered 40 mg PO BEDTIME atorvaSTATin [Lipitor] Med 04/03/21 09:00 Ordered 40 mg PO DAILY dexAMETHasone [Decadron] Med 04/03/21 09:00 Ordered 6 mg IVPUSH DAILY oxyCODONE Med 04/02/21 20:49 Ordered 5 mg PO Q4H PRN Isolation [COMM] Stat Oth 04/02/21 20:49 Ordered Peripheral IV Insertion Adult [OM.PC] Stat Oth 04/02/21 16:43 Ordered Resuscitation Status Routine Resus Stat 04/02/21 20:49 Ordered Medication Orders Acetaminophen (Acetaminophen 325 Mg Tab) 650 mg PO Q4H PRN PRN Reason: Pain (Mild 1-3)/fever Atorvastatin Calcium (Atorvastatin 40 Mg Tab) 40 mg PO DAILY [facility] Dexamethasone (Dexamethasone 10 Mg/Ml Sdv) 6 mg IVPUSH DAILY [facility] Stop: 04/12/21 09:01 Enoxaparin Sodium (Enoxaparin 40 Mg/0.4 Ml Syringe) 40 mg SUBCUT DAILY [facility] Remdesivir 200 mg/ Sodium (Chloride) 250 mls @ 250 mls/hr IV ONETIME ONE Stop: 04/02/21 20:50 Remdesivir 100 mg/ Sodium (Chloride) 100 mls @ 100 mls/hr IV Q24H KAI Stop: 04/06/21 21:59 Losartan Potassium (Losartan 25 Mg Tab) 25 mg PO DAILY [facility] Metoprolol Succinate (Metoprolol Succinate 25 Mg Tab.Er) 25 mg PO TID [facility] Non-Formulary Medication (Aspirin) 325 mg PO DAILY [facility] Non-Formulary Medication (Atorvastatin Calcium [Atorvastatin Calcium]) 40 mg PO BEDTIME [facility] Ondansetron HCl (Ondansetron 4 Mg/2 Ml Sdv) 4 mg IV Q6H PRN PRN Reason: Nausea/Vomiting Oxycodone HCl (Oxycodone 5 Mg Tab) 5 mg PO Q4H PRN PRN Reason: Pain (moderate 4-6) Sodium Chloride (Sodium Chloride 0.9% 10 Ml Syringe) 10 ml FLUSH ASDIRECTED PRN PRN Reason: Keep Vein Open Last Admin: 04/02/21 17:33 Dose: 10 ml Documented by: CHARLES Assessment/Plan Comment:: 66-year-old female unvaccinated against COVID-19 presents to the emergency department with oxygen saturations in the 70s with COVID-19 COVID-19 pneumonia Hypoxemia * Symptoms started approximately 11 days ago with fatigue * Worsening cough, dizziness, and weakness over the last few days. * Requiring high flow nasal cannula in the emergency department to keep oxygen saturations close to 90. * WBC 8.1, C-reactive protein of 8.7, D-dimer 1.43 * Given dexamethasone in the emergency department. Hyponatremia * Sodium 128 * Patient states that she has been drinking excessive amounts of water. * Hyponatremia likely secondary to excessive free water intake History of failure heart block with pacemaker Hypertension, hyperlipidemia * Continue home meds Plan * Admit to medical floor * Standard Covid precautions and treatment protocols to include, prone positioning, bronchodilators, I-S, respiratory therapy, etc. * Start remdesivir 200 mg tonight * Continue dexamethasone 6 mg daily. Consider increasing to twice daily if C- reactive protein continues to increase and oxygen requirements continue to increase. * Consider baricitinib if still requiring high flow nasal cannula in the morning. I discussed baricitinib with the patient. * No need for antibiotics at this time. * Continue home meds * VTE prophylaxis with Lovenox * CODE STATUS: Full code - Mortality Measure Prognosis:: Good
[2021-04-02] MEDS ORDERED: Metoprolol Succinate 25 MG Tab.ER PO ONE (22:00)
[2021-04-02] MEDS: atorvaSTATin 40 MG Tab PO SCH (22:50)
[2021-04-03] MEDS ORDERED: Albuterol 6.7 GM Inhaler INH PRN (06:45)
[2021-04-03] MEDS: Losartan 25 MG Tab PO SCH (08:39)
[2021-04-03] MEDS: Metoprolol Succinate 50 MG Tab.ER PO SCH (08:39)
[2021-04-03] MEDS: Aspirin 325 MG Tab.EC PO SCH (08:39)
[2021-04-03] MEDS: Enoxaparin 40 MG/0.4 ML Syringe SUBCUT SCH (08:39)
[2021-04-03] MEDS: Dexamethasone 10 MG/ML SDV IVPUSH SCH (08:40)
[2021-04-03] MEDS ORDERED: atorvaSTATin 40 MG Tab PO SCH (09:00)
[2021-04-03] MEDS: Albuterol/Ipratropium 3.0-0.5 MG/3 ML Neb Soln NEB PRN ×3 (09:32→20:57)
--- NOTE | 2021-04-03 09:55 | PCM.PN ---
- General Info Date of Service: 04/03/21 Admission Dx/Problem (Free Text): Admission Diagnosis/Problem Admission Diagnosis/Problem Pneumonia Subjective Update: No acute events overnight. No new nursing concerns. On high flow at 35 L/min and 55% FiO2. No respiratory distress or increased work of breathing. Denies any chest pain, chest pressure or pleurisy. No lightheadedness or dizziness. Tolerating food and liquids better this morning. Was on a fluid restriction due to hyponatremia which seems to be resolving her electrolyte imbalance. No fever. No sputum production. No abdominal pain or dysuria. She is opting for baricitinib at this time. - Review of Systems General: Reports: No Symptoms HEENT: Reports: Sinus Congestion Pulmonary: Reports: Shortness of Breath Cardiovascular: Reports: No Symptoms Gastrointestinal: Reports: No Symptoms Genitourinary: Reports: No Symptoms - Patient Data Vitals - Most Recent: Last Vital Signs Temp 97.5 F 04/03/21 08:34 Pulse 79 04/03/21 08:39 Resp 24 H 04/03/21 08:34 BP 113/72 04/03/21 08:39 Pulse Ox 91 L 04/03/21 09:38 Weight - Most Recent: 176 lb 8 oz I&O - Last 24 Hours: Intake & Output 04/02/21 04/03/21 04/03/21 22:59 06:59 14:59 Intake Total 550 Output Total 750 Balance -200 Lab Results Last 24 Hours: Laboratory Results - last 24 hr 04/02/21 04/02/21 04/02/21 Range/Units 16:18 17:05 17:05 WBC 8.08 (3.98-10.04) K/mm3 RBC 5.12 (3.98-5.22) M/mm3 Hgb 14.2 (11.2-15.7) gm/dl Hct 41.6 (34.1-44.9) % MCV 81.3 D (79.4-94.8) fl MCH 27.7 (25.6-32.2) pg MCHC 34.1 (32.2-35.5) g/dl RDW Std Deviation 40.6 (36.4-46.3) fL Plt Count 215 (182-369) K/mm3 MPV 9.6 (9.4-12.3) fl Neut % (Auto) 83.3 H (34.0-71.1) % Lymph % (Auto) 10.8 L (19.3-51.7) % [place] % (Auto) 5.7 (4.7-12.5) % Eos % (Auto) 0 L (0.7-5.8) Baso % (Auto) 0.1 (0.1-1.2) % Neut # (Auto) 6.73 H (1.56-6.13) K/mm3 Lymph # (Auto) 0.87 L (1.18-3.74) K/mm3 [place] # (Auto) 0.46 H (0.24-0.36) K/mm3 Eos # (Auto) 0.00 L (0.04-0.36) K/mm3 Baso # (Auto) 0.01 (0.01-0.08) K/mm3 Manual Slide Review D-Dimer, Quantitative (0.19-0.50) mg/L Sodium (136-145) mEq/L Potassium (3.5-5.1) mEq/L Chloride (98-107) mEq/L Carbon Dioxide (21-32) mEq/L Anion Gap (5-15) BUN (7-18) mg/dL Creatinine (0.55-1.02) mg/dL Est Cr Clr Drug Dosing mL/min Estimated GFR (MDRD) (>60) mL/min BUN/Creatinine Ratio (14-18) Glucose (70-99) mg/dL Calcium (8.5-10.1) mg/dL Phosphorus (2.6-4.7) mg/dL Magnesium (1.8-2.4) mg/dL Total Bilirubin (0.2-1.0) mg/dL AST (15-37) U/L ALT (14-59) U/L Alkaline Phosphatase (46-116) U/L C-Reactive Protein 8.7 H* (<1.0) mg/dL Total Protein (6.4-8.2) g/dl Albumin (3.4-5.0) g/dl Globulin gm/dL Albumin/Globulin Ratio (1-2) Influenza Type A RNA Negative (NEGATIVE) Influenza Type B RNA Negative (NEGATIVE) SARS-CoV-2 RNA (QUINN) Positive H (NEGATIVE) 04/02/21 04/02/21 04/03/21 Range/Units 17:05 17:05 05:55 WBC 5.33 (3.98-10.04) K/mm3 RBC 5.05 (3.98-5.22) M/mm3 Hgb 14.2 (11.2-15.7) gm/dl Hct 41.6 (34.1-44.9) % MCV 82.4 (79.4-94.8) fl MCH 28.1 (25.6-32.2) pg MCHC 34.1 (32.2-35.5) g/dl RDW Std Deviation 40.9 (36.4-46.3) fL Plt Count 221 (182-369) K/mm3 MPV 9.5 (9.4-12.3) fl Neut % (Auto) 80.1 H (34.0-71.1) % Lymph % (Auto) 13.3 L (19.3-51.7) % [place] % (Auto) 6.0 (4.7-12.5) % Eos % (Auto) 0 L (0.7-5.8) Baso % (Auto) 0.4 (0.1-1.2) % Neut # (Auto) 4.27 (1.56-6.13) K/mm3 Lymph # (Auto) 0.71 L (1.18-3.74) K/mm3 [place] # (Auto) 0.32 (0.24-0.36) K/mm3 Eos # (Auto) 0.00 L (0.04-0.36) K/mm3 Baso # (Auto) 0.02 (0.01-0.08) K/mm3 Manual Slide Review Abnormal smear D-Dimer, Quantitative 1.43 H (0.19-0.50) mg/L Sodium 128 L D (136-145) mEq/L Potassium 3.7 (3.5-5.1) mEq/L Chloride 93 L D (98-107) mEq/L Carbon Dioxide 24 (21-32) mEq/L Anion Gap 14.7 (5-15) BUN 13 (7-18) mg/dL Creatinine 1.0 (0.55-1.02) mg/dL Est Cr Clr Drug Dosing 50.47 mL/min Estimated GFR (MDRD) 56 (>60) mL/min BUN/Creatinine Ratio 13.0 L (14-18) Glucose 101 H (70-99) mg/dL Calcium 8.0 L (8.5-10.1) mg/dL Phosphorus (2.6-4.7) mg/dL Magnesium (1.8-2.4) mg/dL Total Bilirubin 0.7 (0.2-1.0) mg/dL AST 64 H (15-37) U/L ALT 41 (14-59) U/L Alkaline Phosphatase 89 (46-116) U/L C-Reactive Protein (<1.0) mg/dL Total Protein 6.6 (6.4-8.2) g/dl Albumin 3.0 L (3.4-5.0) g/dl Globulin 3.6 gm/dL Albumin/Globulin Ratio 0.8 L (1-2) Influenza Type A RNA (NEGATIVE) Influenza Type B RNA (NEGATIVE) SARS-CoV-2 RNA (QUINN) (NEGATIVE) 04/03/21 Range/Units 05:55 WBC (3.98-10.04) K/mm3 RBC (3.98-5.22) M/mm3 Hgb (11.2-15.7) gm/dl Hct (34.1-44.9) % MCV (79.4-94.8) fl MCH (25.6-32.2) pg MCHC (32.2-35.5) g/dl RDW Std Deviation (36.4-46.3) fL Plt Count (182-369) K/mm3 MPV (9.4-12.3) fl Neut % (Auto) (34.0-71.1) % Lymph % (Auto) (19.3-51.7) % [place] % (Auto) (4.7-12.5) % Eos % (Auto) (0.7-5.8) Baso % (Auto) (0.1-1.2) % Neut # (Auto) (1.56-6.13) K/mm3 Lymph # (Auto) (1.18-3.74) K/mm3 [place] # (Auto) (0.24-0.36) K/mm3 Eos # (Auto) (0.04-0.36) K/mm3 Baso # (Auto) (0.01-0.08) K/mm3 Manual Slide Review D-Dimer, Quantitative (0.19-0.50) mg/L Sodium 135 L (136-145) mEq/L Potassium 4.4 (3.5-5.1) mEq/L Chloride 99 (98-107) mEq/L Carbon Dioxide 26 (21-32) mEq/L Anion Gap 14.4 (5-15) BUN 14 (7-18) mg/dL Creatinine 1.0 (0.55-1.02) mg/dL Est Cr Clr Drug Dosing 52.50 mL/min Estimated GFR (MDRD) 56 (>60) mL/min BUN/Creatinine Ratio 14.0 (14-18) Glucose 141 H (70-99) mg/dL Calcium 8.2 L (8.5-10.1) mg/dL Phosphorus 4.1 (2.6-4.7) mg/dL Magnesium 2.4 (1.8-2.4) mg/dL Total Bilirubin 0.5 (0.2-1.0) mg/dL AST 69 H (15-37) U/L ALT 48 (14-59) U/L Alkaline Phosphatase 91 (46-116) U/L C-Reactive Protein 11.2 H* (<1.0) mg/dL Total Protein 5.9 L (6.4-8.2) g/dl Albumin 2.9 L (3.4-5.0) g/dl Globulin 3.0 gm/dL Albumin/Globulin Ratio 1.0 (1-2) Influenza Type A RNA (NEGATIVE) Influenza Type B RNA (NEGATIVE) SARS-CoV-2 RNA (QUINN) (NEGATIVE) Med Orders - Current: Current Medications Acetaminophen (Acetaminophen 325 Mg Tab) 650 mg PO Q4H PRN PRN Reason: Pain (Mild 1-3)/fever Albuterol (Albuterol 6.7 Gm Inhaler) 0 gm INH Q2H PRN PRN Reason: SOB/WHEEZING Albuterol/Ipratropium (Albuterol/Ipratropium 3.0-0.5 Mg/3 Ml Neb Soln) 3 ml NEB Q4HRRT PRN PRN Reason: SOB/WHEEZING Last Admin: 04/03/21 09:32 Dose: 3 ml Documented by: Aspirin (Aspirin 325 Mg Tab.Ec) 325 mg PO DAILY [facility] Last Admin: 04/03/21 08:39 Dose: 325 mg Documented by: Atorvastatin Calcium (Atorvastatin 40 Mg Tab) 40 mg PO BEDTIME [facility] Last Admin: 04/02/21 22:50 Dose: 40 mg Documented by: Baricitinib (Baricitinib 2 Mg Tab) 2 mg PO DAILY [facility] Dexamethasone (Dexamethasone 10 Mg/Ml Sdv) 6 mg IVPUSH DAILY [facility] Stop: 04/12/21 09:01 Last Admin: 04/03/21 08:40 Dose: 6 mg Documented by: Enoxaparin Sodium (Enoxaparin 40 Mg/0.4 Ml Syringe) 40 mg SUBCUT DAILY [facility] Last Admin: 04/03/21 08:39 Dose: 40 mg Documented by: Remdesivir 100 mg/ Sodium (Chloride) 100 mls @ 100 mls/hr IV Q24H [facility] Stop: 04/06/21 21:59 Losartan Potassium (Losartan 25 Mg Tab) 25 mg PO DAILY [facility] Last Admin: 04/03/21 08:39 Dose: 25 mg Documented by: Metoprolol Succinate (Metoprolol Succinate 50 Mg Tab.Er) 50 mg PO DAILY [facility] Last Admin: 04/03/21 08:39 Dose: 50 mg Documented by: Metoprolol Succinate (Metoprolol Succinate 25 Mg Tab.Er) 25 mg PO BEDTIME [facility] Ondansetron HCl (Ondansetron 4 Mg/2 Ml Sdv) 4 mg IV Q6H PRN PRN Reason: Nausea/Vomiting Oxycodone HCl (Oxycodone 5 Mg Tab) 5 mg PO Q4H PRN PRN Reason: Pain (moderate 4-6) Sodium Chloride (Sodium Chloride 0.9% 10 Ml Syringe) 10 ml FLUSH ASDIRECTED PRN PRN Reason: Keep Vein Open Last Admin: 04/02/21 17:33 Dose: 10 ml Documented by: Discontinued Medications Dexamethasone (Dexamethasone 4 Mg/Ml 5 Ml Mdv) 6 mg IV ONETIME ONE Stop: 04/02/21 18:54 Last Admin: 04/02/21 19:31 Dose: 6 mg Documented by: Remdesivir 200 mg/ Sodium (Chloride) 250 mls @ 250 mls/hr IV ONETIME ONE Stop: 04/02/21 21:59 Last Admin: 04/02/21 22:45 Dose: 250 mls/hr Documented by: Metoprolol Succinate (Metoprolol Succinate 25 Mg Tab.Er) 25 mg PO ONETIME ONE Stop: 04/02/21 22:01 Last Admin: 04/02/21 22:50 Dose: 25 mg Documented by: - Exam General: Alert, Cooperative Lungs: Normal Respiratory Effort, Decreased Breath Sounds Cardiovascular: Regular Rate GI/Abdominal Exam: Normal Bowel Sounds, Soft, Non-Tender Extremities: Normal Inspection, No Pedal Edema Skin: Warm, Dry Neurological: No New Focal Deficit - Patient Data Lab Results Last 24 hrs: Laboratory Results - last 24 hr 04/02/21 04/02/21 04/02/21 Range/Units 16:18 17:05 17:05 WBC 8.08 (3.98-10.04) K/mm3 RBC 5.12 (3.98-5.22) M/mm3 Hgb 14.2 (11.2-15.7) gm/dl Hct 41.6 (34.1-44.9) % MCV 81.3 D (79.4-94.8) fl MCH 27.7 (25.6-32.2) pg MCHC 34.1 (32.2-35.5) g/dl RDW Std Deviation 40.6 (36.4-46.3) fL Plt Count 215 (182-369) K/mm3 MPV 9.6 (9.4-12.3) fl Neut % (Auto) 83.3 H (34.0-71.1) % Lymph % (Auto) 10.8 L (19.3-51.7) % [place] % (Auto) 5.7 (4.7-12.5) % Eos % (Auto) 0 L (0.7-5.8) Baso % (Auto) 0.1 (0.1-1.2) % Neut # (Auto) 6.73 H (1.56-6.13) K/mm3 Lymph # (Auto) 0.87 L (1.18-3.74) K/mm3 [place] # (Auto) 0.46 H (0.24-0.36) K/mm3 Eos # (Auto) 0.00 L (0.04-0.36) K/mm3 Baso # (Auto) 0.01 (0.01-0.08) K/mm3 Manual Slide Review D-Dimer, Quantitative (0.19-0.50) mg/L Sodium (136-145) mEq/L Potassium (3.5-5.1) mEq/L Chloride (98-107) mEq/L Carbon Dioxide (21-32) mEq/L Anion Gap (5-15) BUN (7-18) mg/dL Creatinine (0.55-1.02) mg/dL Est Cr Clr Drug Dosing mL/min Estimated GFR (MDRD) (>60) mL/min BUN/Creatinine Ratio (14-18) Glucose (70-99) mg/dL Calcium (8.5-10.1) mg/dL Phosphorus (2.6-4.7) mg/dL Magnesium (1.8-2.4) mg/dL Total Bilirubin (0.2-1.0) mg/dL AST (15-37) U/L ALT (14-59) U/L Alkaline Phosphatase (46-116) U/L C-Reactive Protein 8.7 H* (<1.0) mg/dL Total Protein (6.4-8.2) g/dl Albumin (3.4-5.0) g/dl Globulin gm/dL Albumin/Globulin Ratio (1-2) Influenza Type A RNA Negative (NEGATIVE) Influenza Type B RNA Negative (NEGATIVE) SARS-CoV-2 RNA (UQINN) Positive H (NEGATIVE) 04/02/21 04/02/21 04/03/21 Range/Units 17:05 17:05 05:55 WBC 5.33 (3.98-10.04) K/mm3 RBC 5.05 (3.98-5.22) M/mm3 Hgb 14.2 (11.2-15.7) gm/dl Hct 41.6 (34.1-44.9) % MCV 82.4 (79.4-94.8) fl MCH 28.1 (25.6-32.2) pg MCHC 34.1 (32.2-35.5) g/dl RDW Std Deviation 40.9 (36.4-46.3) fL Plt Count 221 (182-369) K/mm3 MPV 9.5 (9.4-12.3) fl Neut % (Auto) 80.1 H (34.0-71.1) % Lymph % (Auto) 13.3 L (19.3-51.7) % [place] % (Auto) 6.0 (4.7-12.5) % Eos % (Auto) 0 L (0.7-5.8) Baso % (Auto) 0.4 (0.1-1.2) % Neut # (Auto) 4.27 (1.56-6.13) K/mm3 Lymph # (Auto) 0.71 L (1.18-3.74) K/mm3 [place] # (Auto) 0.32 (0.24-0.36) K/mm3 Eos # (Auto) 0.00 L (0.04-0.36) K/mm3 Baso # (Auto) 0.02 (0.01-0.08) K/mm3 Manual Slide Review Abnormal smear D-Dimer, Quantitative 1.43 H (0.19-0.50) mg/L Sodium 128 L D (136-145) mEq/L Potassium 3.7 (3.5-5.1) mEq/L Chloride 93 L D (98-107) mEq/L Carbon Dioxide 24 (21-32) mEq/L Anion Gap 14.7 (5-15) BUN 13 (7-18) mg/dL Creatinine 1.0 (0.55-1.02) mg/dL Est Cr Clr Drug Dosing 50.47 mL/min Estimated GFR (MDRD) 56 (>60) mL/min BUN/Creatinine Ratio 13.0 L (14-18) Glucose 101 H (70-99) mg/dL Calcium 8.0 L (8.5-10.1) mg/dL Phosphorus (2.6-4.7) mg/dL Magnesium (1.8-2.4) mg/dL Total Bilirubin 0.7 (0.2-1.0) mg/dL AST 64 H (15-37) U/L ALT 41 (14-59) U/L Alkaline Phosphatase 89 (46-116) U/L C-Reactive Protein (<1.0) mg/dL Total Protein 6.6 (6.4-8.2) g/dl Albumin 3.0 L (3.4-5.0) g/dl Globulin 3.6 gm/dL Albumin/Globulin Ratio 0.8 L (1-2) Influenza Type A RNA (NEGATIVE) Influenza Type B RNA (NEGATIVE) SARS-CoV-2 RNA (QUINN) (NEGATIVE) 04/03/21 Range/Units 05:55 WBC (3.98-10.04) K/mm3 RBC (3.98-5.22) M/mm3 Hgb (11.2-15.7) gm/dl Hct (34.1-44.9) % MCV (79.4-94.8) fl MCH (25.6-32.2) pg MCHC (32.2-35.5) g/dl RDW Std Deviation (36.4-46.3) fL Plt Count (182-369) K/mm3 MPV (9.4-12.3) fl Neut % (Auto) (34.0-71.1) % Lymph % (Auto) (19.3-51.7) % [place] % (Auto) (4.7-12.5) % Eos % (Auto) (0.7-5.8) Baso % (Auto) (0.1-1.2) % Neut # (Auto) (1.56-6.13) K/mm3 Lymph # (Auto) (1.18-3.74) K/mm3 [place] # (Auto) (0.24-0.36) K/mm3 Eos # (Auto) (0.04-0.36) K/mm3 Baso # (Auto) (0.01-0.08) K/mm3 Manual Slide Review D-Dimer, Quantitative (0.19-0.50) mg/L Sodium 135 L (136-145) mEq/L Potassium 4.4 (3.5-5.1) mEq/L Chloride 99 (98-107) mEq/L Carbon Dioxide 26 (21-32) mEq/L Anion Gap 14.4 (5-15) BUN 14 (7-18) mg/dL Creatinine 1.0 (0.55-1.02) mg/dL Est Cr Clr Drug Dosing 52.50 mL/min Estimated GFR (MDRD) 56 (>60) mL/min BUN/Creatinine Ratio 14.0 (14-18) Glucose 141 H (70-99) mg/dL Calcium 8.2 L (8.5-10.1) mg/dL Phosphorus 4.1 (2.6-4.7) mg/dL Magnesium 2.4 (1.8-2.4) mg/dL Total Bilirubin 0.5 (0.2-1.0) mg/dL AST 69 H (15-37) U/L ALT 48 (14-59) U/L Alkaline Phosphatase 91 (46-116) U/L C-Reactive Protein 11.2 H* (<1.0) mg/dL Total Protein 5.9 L (6.4-8.2) g/dl Albumin 2.9 L (3.4-5.0) g/dl Globulin 3.0 gm/dL Albumin/Globulin Ratio 1.0 (1-2) Influenza Type A RNA (NEGATIVE) Influenza Type B RNA (NEGATIVE) SARS-CoV-2 RNA (QUINN) (NEGATIVE) Result Diagrams: 04/03/21 05:55 04/03/21 05:55 Sepsis Event Note - Evaluation Sepsis Screening Result: No Definite Risk - Focused Exam Vital Signs: Vital Signs Temp Temp Pulse Pulse Resp BP BP 04/03/21 09:38 04/03/21 09:33 04/03/21 08:39 79 113/72 04/03/21 08:34 97.5 F 79 24 H 113/72 04/03/21 03:00 04/03/21 02:49 98.2 F 77 20 100/56 L 04/03/21 00:15 98.2 F 82 14 118/68 04/02/21 22:50 84 126/68 04/02/21 22:00 Pulse Ox Pulse Ox 04/03/21 09:38 91 L 04/03/21 09:33 84 L 04/03/21 08:39 04/03/21 08:34 87 L 04/03/21 03:00 90 L 86 L 04/03/21 02:49 04/03/21 00:15 91 L 04/02/21 22:50 04/02/21 22:00 92 L - Problem List Review Problem List Initiated/Reviewed/Updated: Yes - My Orders Last 24 Hours: My Active Orders 04/03/21 09:22 Chest Physiotherapy [RT Chest Physiotherapy] [RC] ASDIRECTED 04/03/21 09:45 Baricitinib [Olumiant] 2 mg PO DAILY - Plan Plan:: 1. Acute hypoxemic respiratory failure. Secondary to acute COVID-19 pneumonitis. Requiring high flow. Continue RT consult. Wean oxygen as tolerated. Conventional with 19 protocol Continue antivirals, steroids, begin baricitinib, vitamin replacement. Encourage proning and incentive spirometry. 2. Acute COVID-19 pneumonitis. Plan as above. 3. Hyponatremia. From excessive free water intake. Fluid restriction has now increased her sodium to 135. We will continue restriction until dinnertime at which time her limitations will be revoked. 4. History of complete heart block status post pacemaker. No acute cardiac issues. All other medical comorbidities are stable and nonactive conditions, will continue home medications at regular dose. Continue hypercoagulable prophylaxis. CODE STATUS: Full code.
[2021-04-03] MEDS: REMDESIVIR 100 MG in Sodium Chloride 0.9% 100 ML IV SCH (20:38)
[2021-04-03] MEDS: atorvaSTATin 40 MG Tab PO SCH (20:38)
[2021-04-03] MEDS: Metoprolol Succinate 25 MG Tab.ER PO SCH (20:39)
[2021-04-04] MEDS: Temazepam 15 MG Cap PO PRN (01:56)
--- NOTE | 2021-04-04 08:21 | PCM.PN ---
- General Info Date of Service: 04/04/21 Admission Dx/Problem (Free Text): Admission Diagnosis/Problem Admission Diagnosis/Problem Pneumonia Subjective Update: Patient states that she feels better today. Still has a cough with mild posttussive pain. No fever or chills. Taking p.o. without complication. No abdominal complaints. No myalgias or arthralgias. Remains on high flow and has been weaned down just a little. No concerns from RT at current time. No new nursing concerns. - Patient Data Vitals - Most Recent: Last Vital Signs Temp 97.3 F 04/04/21 07:41 Pulse 64 04/04/21 07:41 Resp 21 H 04/04/21 07:41 BP 134/85 04/04/21 07:41 Pulse Ox 92 L 04/04/21 07:41 Weight - Most Recent: 174 lb 1.6 oz I&O - Last 24 Hours: Intake & Output 04/03/21 04/04/21 04/04/21 22:59 06:59 14:59 Intake Total 535 500 Output Total 150 Balance 535 350 Lab Results Last 24 Hours: Laboratory Results - last 24 hr 04/04/21 04/04/21 04/04/21 Range/Units 05:37 05:57 05:57 D-Dimer, Quantitative 1.16 H (0.19-0.50) mg/L Ferritin 2941 H (8-252) ng/ml Total Bilirubin 0.6 (0.2-1.0) mg/dL Direct Bilirubin 0.20 (0.0-0.2) mg/dl Indirect Bilirubin 0.40 AST 70 H (15-37) U/L ALT 72 H (14-59) U/L Alkaline Phosphatase 91 (46-116) U/L Lactate Dehydrogenase 655 H (81-234) U/L C-Reactive Protein 6.0 H* (<1.0) mg/dL Total Protein 6.0 L (6.4-8.2) g/dl Albumin 2.9 L (3.4-5.0) g/dl Globulin 3.1 gm/dL Albumin/Globulin Ratio 0.9 L (1-2) Med Orders - Current: Current Medications Acetaminophen (Acetaminophen 325 Mg Tab) 650 mg PO Q4H PRN PRN Reason: Pain (Mild 1-3)/fever Albuterol (Albuterol 6.7 Gm Inhaler) 0 gm INH Q2H PRN PRN Reason: SOB/WHEEZING Albuterol/Ipratropium (Albuterol/Ipratropium 3.0-0.5 Mg/3 Ml Neb Soln) 3 ml NEB Q4HRRT PRN PRN Reason: SOB/WHEEZING Last Admin: 04/03/21 20:57 Dose: 3 ml Documented by: Aspirin (Aspirin 325 Mg Tab.Ec) 325 mg PO DAILY [facility] Last Admin: 04/03/21 08:39 Dose: 325 mg Documented by: Atorvastatin Calcium (Atorvastatin 40 Mg Tab) 40 mg PO BEDTIME [facility] Last Admin: 04/03/21 20:38 Dose: 40 mg Documented by: Baricitinib (Baricitinib 2 Mg Tab) 4 mg PO DAILY [facility] Stop: 04/16/21 09:01 Last Admin: 04/03/21 10:01 Dose: 4 mg Documented by: Dexamethasone (Dexamethasone 10 Mg/Ml Sdv) 6 mg IVPUSH DAILY [facility] Stop: 04/12/21 09:01 Last Admin: 04/03/21 08:40 Dose: 6 mg Documented by: Enoxaparin Sodium (Enoxaparin 40 Mg/0.4 Ml Syringe) 40 mg SUBCUT DAILY [facility] Last Admin: 04/03/21 08:39 Dose: 40 mg Documented by: Remdesivir 100 mg/ Sodium (Chloride) 100 mls @ 100 mls/hr IV Q24H [facility] Stop: 04/06/21 21:59 Last Admin: 04/03/21 20:38 Dose: 100 mls/hr Documented by: Losartan Potassium (Losartan 25 Mg Tab) 25 mg PO DAILY [facility] Last Admin: 04/03/21 08:39 Dose: 25 mg Documented by: Metoprolol Succinate (Metoprolol Succinate 50 Mg Tab.Er) 50 mg PO DAILY [facility] Last Admin: 04/03/21 08:39 Dose: 50 mg Documented by: Metoprolol Succinate (Metoprolol Succinate 25 Mg Tab.Er) 25 mg PO BEDTIME [facility] Last Admin: 04/03/21 20:39 Dose: 25 mg Documented by: Ondansetron HCl (Ondansetron 4 Mg/2 Ml Sdv) 4 mg IV Q6H PRN PRN Reason: Nausea/Vomiting Oxycodone HCl (Oxycodone 5 Mg Tab) 5 mg PO Q4H PRN PRN Reason: Pain (moderate 4-6) Sodium Chloride (Sodium Chloride 0.9% 10 Ml Syringe) 10 ml FLUSH ASDIRECTED PRN PRN Reason: Keep Vein Open Last Admin: 04/02/21 17:33 Dose: 10 ml Documented by: Temazepam (Temazepam 15 Mg Cap) 15 mg PO BEDTIME PRN PRN Reason: Sleep Last Admin: 04/04/21 01:56 Dose: 15 mg Documented by: Discontinued Medications Dexamethasone (Dexamethasone 4 Mg/Ml 5 Ml Mdv) 6 mg IV ONETIME ONE Stop: 04/02/21 18:54 Last Admin: 04/02/21 19:31 Dose: 6 mg Documented by: Remdesivir 200 mg/ Sodium (Chloride) 250 mls @ 250 mls/hr IV ONETIME ONE Stop: 04/02/21 21:59 Last Admin: 04/02/21 22:45 Dose: 250 mls/hr Documented by: Metoprolol Succinate (Metoprolol Succinate 25 Mg Tab.Er) 25 mg PO ONETIME ONE Stop: 04/02/21 22:01 Last Admin: 04/02/21 22:50 Dose: 25 mg Documented by: - Exam Quality Assessment: Supplemental Oxygen (High flow oxygen), DVT Prophylaxis General: Alert, Cooperative, No Acute Distress Lungs: Clear to Auscultation, Decreased Breath Sounds Cardiovascular: Regular Rate GI/Abdominal Exam: Normal Bowel Sounds, Soft, Non-Tender Extremities: Normal Inspection, No Pedal Edema Skin: Warm, Dry - Patient Data Lab Results Last 24 hrs: Laboratory Results - last 24 hr 04/04/21 04/04/21 04/04/21 Range/Units 05:37 05:57 05:57 D-Dimer, Quantitative 1.16 H (0.19-0.50) mg/L Ferritin 2941 H (8-252) ng/ml Total Bilirubin 0.6 (0.2-1.0) mg/dL Direct Bilirubin 0.20 (0.0-0.2) mg/dl Indirect Bilirubin 0.40 AST 70 H (15-37) U/L ALT 72 H (14-59) U/L Alkaline Phosphatase 91 (46-116) U/L Lactate Dehydrogenase 655 H (81-234) U/L C-Reactive Protein 6.0 H* (<1.0) mg/dL Total Protein 6.0 L (6.4-8.2) g/dl Albumin 2.9 L (3.4-5.0) g/dl Globulin 3.1 gm/dL Albumin/Globulin Ratio 0.9 L (1-2) Result Diagrams: 04/03/21 05:55 04/03/21 05:55 Sepsis Event Note - Evaluation Sepsis Screening Result: No Definite Risk - Focused Exam Vital Signs: Vital Signs Temp Pulse Resp BP Pulse Ox Pulse Ox 04/04/21 07:41 97.3 F 64 21 H 134/85 92 L 04/04/21 07:39 66 118/66 90 L 04/04/21 05:50 87 L 04/04/21 05:03 97.5 F 63 16 90/69 85 L 04/04/21 00:36 97.7 F 71 18 122/84 93 L 04/03/21 20:58 92 L 04/03/21 20:46 97.7 F 04/03/21 20:39 72 117/83 04/03/21 20:35 72 117/83 88 L - Problem List Review Problem List Initiated/Reviewed/Updated: Yes - My Orders Last 24 Hours: My Active Orders 04/03/21 09:22 Chest Physiotherapy [RT Chest Physiotherapy] [RC] ASDIRECTED 04/03/21 10:00 Baricitinib [Olumiant] 4 mg PO DAILY 04/04/21 01:34 Temazepam [Restoril] 15 mg PO BEDTIME PRN 04/04/21 08:18 Chest 1V Frontal [CR] Routine - Plan Plan:: 1. Acute hypoxemic respiratory failure. Secondary to acute COVID-19 pneumonitis. Requiring high flow. Continue RT consult. Wean oxygen as tolerated. Conventional with 19 protocol Continue antivirals, steroids, begin baricitinib, vitamin replacement. Encourage proning and incentive spirometry. Chest x-ray today for Covid maintenance examination for review. 2. Acute COVID-19 pneumonitis. Plan as above. 3. Hyponatremia. From excessive free water intake. Fluid restriction has now increased her sodium to 135. We will continue restriction until dinnertime at which time her limitations will be revoked. 4. History of complete heart block status post pacemaker. No acute cardiac issues. All other medical comorbidities are stable and nonactive conditions, will continue home medications at regular dose. Continue hypercoagulable prophylaxis. CODE STATUS: Full code.
[2021-04-04] MEDS: Aspirin 325 MG Tab.EC PO SCH (09:12)
[2021-04-04] MEDS: Dexamethasone 10 MG/ML SDV IVPUSH SCH (09:12)
[2021-04-04] MEDS: Metoprolol Succinate 50 MG Tab.ER PO SCH (09:13)
[2021-04-04] MEDS: Losartan 25 MG Tab PO SCH (09:14)
[2021-04-04] MEDS: Enoxaparin 40 MG/0.4 ML Syringe SUBCUT SCH (09:14)
--- NOTE | 2021-04-04 09:55 | CR ---
Chest: Frontal view of the chest was obtained. Comparison: Prior chest x-ray of 04/02/21. Heart size and mediastinum are normal. Patchy density is seen within the left perihilar region which shows slightly increased atelectasis within the mid and lower left lung. Other findings are stable. Mild increased right-sided perihilar markings are noted which appear stable. Pacemaker is noted. No acute osseous abnormality is appreciated. Impression: 1. Slight increased atelectasis with the left mid and lower lung. 2. Other perihilar interstitial changes remain stable on both sides of the chest. Diagnostic code #3
[2021-04-04] MEDS: Albuterol/Ipratropium 3.0-0.5 MG/3 ML Neb Soln NEB PRN ×2 (11:11→20:44)
[2021-04-04] MEDS: REMDESIVIR 100 MG in Sodium Chloride 0.9% 100 ML IV SCH (21:51)
[2021-04-04] MEDS: Metoprolol Succinate 25 MG Tab.ER PO SCH (21:51)
[2021-04-04] MEDS: atorvaSTATin 40 MG Tab PO SCH (21:51)
--- NOTE | 2021-04-05 08:16 | PCM.PN ---
- General Info Date of Service: 04/05/21 Admission Dx/Problem (Free Text): Admission Diagnosis/Problem Admission Diagnosis/Problem Pneumonia Subjective Update: Patient seen and examined at bedside. No overnight events. No new nursing concerns. FiO2 titrated down by 10% down to 60%. Flow rate remains at 45 L/min. Despite remaining on high flow, the patient states that she continues to feel better day by day. Denies any constitutional symptoms. No difficulties with p.o. intake. No chest pain, chest pressure or pleurisy. No sputum production. Patient feels strong enough to ambulate. No difficulties with voiding. - Patient Data Vitals - Most Recent: Last Vital Signs Temp 98.1 F 04/05/21 04:28 Pulse 63 04/05/21 04:28 Resp 16 04/05/21 04:28 BP 111/62 04/05/21 04:28 Pulse Ox 89 L 04/05/21 06:41 Weight - Most Recent: 172 lb 8 oz I&O - Last 24 Hours: Intake & Output 04/04/21 04/05/21 04/05/21 22:59 06:59 14:59 Intake Total 1100 100 Output Total 1200 550 Balance -100 -450 Lab Results Last 24 Hours: Laboratory Results - last 24 hr 04/04/21 04/04/21 Range/Units 05:57 05:57 Ferritin 2941 H (8-252) ng/ml Total Bilirubin 0.6 (0.2-1.0) mg/dL Direct Bilirubin 0.20 (0.0-0.2) mg/dl Indirect Bilirubin 0.40 AST 70 H (15-37) U/L ALT 72 H (14-59) U/L Alkaline Phosphatase 91 (46-116) U/L Lactate Dehydrogenase 655 H (81-234) U/L C-Reactive Protein 6.0 H* (<1.0) mg/dL Total Protein 6.0 L (6.4-8.2) g/dl Albumin 2.9 L (3.4-5.0) g/dl Globulin 3.1 gm/dL Albumin/Globulin Ratio 0.9 L (1-2) Med Orders - Current: Current Medications Acetaminophen (Acetaminophen 325 Mg Tab) 650 mg PO Q4H PRN PRN Reason: Pain (Mild 1-3)/fever Albuterol (Albuterol 6.7 Gm Inhaler) 0 gm INH Q2H PRN PRN Reason: SOB/WHEEZING Albuterol/Ipratropium (Albuterol/Ipratropium 3.0-0.5 Mg/3 Ml Neb Soln) 3 ml NEB Q4HRRT PRN PRN Reason: SOB/WHEEZING Last Admin: 04/04/21 20:44 Dose: 3 ml Documented by: Aspirin (Aspirin 325 Mg Tab.Ec) 325 mg PO DAILY [facility] Last Admin: 04/04/21 09:12 Dose: 325 mg Documented by: Atorvastatin Calcium (Atorvastatin 40 Mg Tab) 40 mg PO BEDTIME [facility] Last Admin: 04/04/21 21:51 Dose: 40 mg Documented by: Baricitinib (Baricitinib 2 Mg Tab) 4 mg PO DAILY [facility] Stop: 04/16/21 09:01 Last Admin: 04/04/21 09:12 Dose: 4 mg Documented by: Dexamethasone (Dexamethasone 10 Mg/Ml Sdv) 6 mg IVPUSH DAILY [facility] Stop: 04/12/21 09:01 Last Admin: 04/04/21 09:12 Dose: 6 mg Documented by: Enoxaparin Sodium (Enoxaparin 40 Mg/0.4 Ml Syringe) 40 mg SUBCUT DAILY [facility] Last Admin: 04/04/21 09:14 Dose: 40 mg Documented by: Remdesivir 100 mg/ Sodium (Chloride) 100 mls @ 100 mls/hr IV Q24H [facility] Stop: 04/06/21 21:59 Last Admin: 04/04/21 21:51 Dose: 100 mls/hr Documented by: Losartan Potassium (Losartan 25 Mg Tab) 25 mg PO DAILY [facility] Last Admin: 04/04/21 09:14 Dose: 25 mg Documented by: Metoprolol Succinate (Metoprolol Succinate 50 Mg Tab.Er) 50 mg PO DAILY [facility] Last Admin: 04/04/21 09:13 Dose: 50 mg Documented by: Metoprolol Succinate (Metoprolol Succinate 25 Mg Tab.Er) 25 mg PO BEDTIME [facility] Last Admin: 04/04/21 21:51 Dose: 25 mg Documented by: Ondansetron HCl (Ondansetron 4 Mg/2 Ml Sdv) 4 mg IV Q6H PRN PRN Reason: Nausea/Vomiting Oxycodone HCl (Oxycodone 5 Mg Tab) 5 mg PO Q4H PRN PRN Reason: Pain (moderate 4-6) Sodium Chloride (Sodium Chloride 0.9% 10 Ml Syringe) 10 ml FLUSH ASDIRECTED PRN PRN Reason: Keep Vein Open Last Admin: 04/02/21 17:33 Dose: 10 ml Documented by: Temazepam (Temazepam 15 Mg Cap) 15 mg PO BEDTIME PRN PRN Reason: Sleep Last Admin: 04/04/21 01:56 Dose: 15 mg Documented by: Discontinued Medications Dexamethasone (Dexamethasone 4 Mg/Ml 5 Ml Mdv) 6 mg IV ONETIME ONE Stop: 04/02/21 18:54 Last Admin: 04/02/21 19:31 Dose: 6 mg Documented by: Remdesivir 200 mg/ Sodium (Chloride) 250 mls @ 250 mls/hr IV ONETIME ONE Stop: 04/02/21 21:59 Last Admin: 04/02/21 22:45 Dose: 250 mls/hr Documented by: Metoprolol Succinate (Metoprolol Succinate 25 Mg Tab.Er) 25 mg PO ONETIME ONE Stop: 04/02/21 22:01 Last Admin: 04/02/21 22:50 Dose: 25 mg Documented by: - Exam Quality Assessment: Supplemental Oxygen (High flow at 45 L/min and 60% FiO2.) General: Alert Neck: Supple Lungs: Normal Respiratory Effort, Decreased Breath Sounds (But otherwise clear) Cardiovascular: Regular Rate GI/Abdominal Exam: Normal Bowel Sounds, Soft Extremities: Normal Inspection, Normal Range of Motion (Able to walk without assistance in the room) Skin: Warm, Dry - Patient Data Lab Results Last 24 hrs: Laboratory Results - last 24 hr 04/04/21 04/04/21 Range/Units 05:57 05:57 Ferritin 2941 H (8-252) ng/ml Total Bilirubin 0.6 (0.2-1.0) mg/dL Direct Bilirubin 0.20 (0.0-0.2) mg/dl Indirect Bilirubin 0.40 AST 70 H (15-37) U/L ALT 72 H (14-59) U/L Alkaline Phosphatase 91 (46-116) U/L Lactate Dehydrogenase 655 H (81-234) U/L C-Reactive Protein 6.0 H* (<1.0) mg/dL Total Protein 6.0 L (6.4-8.2) g/dl Albumin 2.9 L (3.4-5.0) g/dl Globulin 3.1 gm/dL Albumin/Globulin Ratio 0.9 L (1-2) Result Diagrams: 04/03/21 05:55 04/03/21 05:55 Sepsis Event Note - Evaluation Sepsis Screening Result: No Definite Risk - Focused Exam Vital Signs: Vital Signs Temp Pulse Resp BP Pulse Ox Pulse Ox 04/05/21 06:41 89 L 04/05/21 04:28 98.1 F 63 16 111/62 91 L 04/05/21 00:10 97.7 F 64 24 H 122/75 86 L 04/04/21 21:51 68 166/95 H 04/04/21 20:45 91 L - Problem List Review Problem List Initiated/Reviewed/Updated: Yes - Plan Plan:: 1. Acute hypoxemic respiratory failure. Secondary to acute COVID-19 pneumonitis. Requiring high flow, able to titrate down FiO2 this morning. We will continue to try and do so further. Continue RT consult. Conventional with 19 protocol Continue antivirals, steroids, baricitinib day 3, vitamin replacement. Encourage proning and incentive spirometry. Yesterday's chest x-ray for Covid maintenance showed mild progression of disease however patient feeling better. 2. Acute COVID-19 pneumonitis. Plan as above. 3. Hyponatremia. From excessive free water intake. Resolved. Continue intermittent checks of chemistries. 4. History of complete heart block status post pacemaker. No acute cardiac issues. All other medical comorbidities are stable and nonactive conditions, will continue home medications at regular dose. Continue hypercoagulable prophylaxis. CODE STATUS: Full code.
[2021-04-05] MEDS: Aspirin 325 MG Tab.EC PO SCH (08:35)
[2021-04-05] MEDS: Metoprolol Succinate 50 MG Tab.ER PO SCH (08:35)
[2021-04-05] MEDS: Enoxaparin 40 MG/0.4 ML Syringe SUBCUT SCH (08:36)
[2021-04-05] MEDS: Losartan 25 MG Tab PO SCH (08:36)
[2021-04-05] MEDS: Dexamethasone 10 MG/ML SDV IVPUSH SCH (08:36)
[2021-04-05] MEDS: Albuterol/Ipratropium 3.0-0.5 MG/3 ML Neb Soln NEB PRN ×2 (08:55→19:53)
[2021-04-05] MEDS: atorvaSTATin 40 MG Tab PO SCH (20:35)
[2021-04-05] MEDS: Metoprolol Succinate 25 MG Tab.ER PO SCH (20:35)
[2021-04-05] MEDS: REMDESIVIR 100 MG in Sodium Chloride 0.9% 100 ML IV SCH (20:46)
[2021-04-06] MEDS: Acetaminophen 325 MG Tab PO PRN (01:55)
[2021-04-06] MEDS: Albuterol/Ipratropium 3.0-0.5 MG/3 ML Neb Soln NEB PRN ×2 (08:36→20:08)
--- NOTE | 2021-04-06 08:40 | PCM.PN ---
- General Info Date of Service: 04/06/21 Admission Dx/Problem (Free Text): Admission Diagnosis/Problem Admission Diagnosis/Problem Pneumonia Subjective Update: No acute events overnight. No new nursing concerns. Patient continues to feel better today and is happy with her progress. Weaned down to 50% FiO2 and 35 L/min flow rate. Continues to have cough but nonproductive. No fever or constitutional symptoms. Taking good p.o. Ambulating around the room. - Patient Data Vitals - Most Recent: Last Vital Signs Temp 97.3 F 04/06/21 08:07 Pulse 60 04/06/21 08:07 Resp 16 04/06/21 08:07 BP 129/79 04/06/21 08:07 Pulse Ox 92 L 04/06/21 08:07 Weight - Most Recent: 169 lb 9.6 oz I&O - Last 24 Hours: Intake & Output 04/05/21 04/06/21 04/06/21 22:59 06:59 14:59 Intake Total 1020 900 Output Total 600 1900 Balance 420 -1000 Med Orders - Current: Current Medications Acetaminophen (Acetaminophen 325 Mg Tab) 650 mg PO Q4H PRN PRN Reason: Pain (Mild 1-3)/fever Last Admin: 04/06/21 01:55 Dose: 650 mg Documented by: Albuterol (Albuterol 6.7 Gm Inhaler) 0 gm INH Q2H PRN PRN Reason: SOB/WHEEZING Albuterol/Ipratropium (Albuterol/Ipratropium 3.0-0.5 Mg/3 Ml Neb Soln) 3 ml NEB Q4HRRT PRN PRN Reason: SOB/WHEEZING Last Admin: 04/06/21 08:36 Dose: 3 ml Documented by: Aspirin (Aspirin 325 Mg Tab.Ec) 325 mg PO DAILY [facility] 234 BEDS AT [facility] Last Admin: 04/05/21 08:35 Dose: 325 mg Documented by: Atorvastatin Calcium (Atorvastatin 40 Mg Tab) 40 mg PO BEDTIME [facility] Last Admin: 04/05/21 20:35 Dose: 40 mg Documented by: Baricitinib (Baricitinib 2 Mg Tab) 4 mg PO DAILY [facility] Stop: 04/16/21 09:01 Last Admin: 04/05/21 08:35 Dose: 4 mg Documented by: Dexamethasone (Dexamethasone 10 Mg/Ml Sdv) 6 mg IVPUSH DAILY [facility] 234 BEDS AT [facility] Stop: 04/12/21 09:01 Last Admin: 04/05/21 08:36 Dose: 6 mg Documented by: Enoxaparin Sodium (Enoxaparin 40 Mg/0.4 Ml Syringe) 40 mg SUBCUT DAILY [facility] 234 BEDS AT [facility] Last Admin: 04/05/21 08:36 Dose: 40 mg Documented by: Remdesivir 100 mg/ Sodium (Chloride) 100 mls @ 100 mls/hr IV Q24H [facility]S [facility]CLUDE 234 BEDS AT [facility] Stop: 04/06/21 21:59 Last Admin: 04/05/21 20:46 Dose: 100 mls/hr Documented by: Losartan Potassium (Losartan 25 Mg Tab) 25 mg PO DAILY [facility] 234 BEDS AT [facility] Last Admin: 04/05/21 08:36 Dose: 25 mg Documented by: Metoprolol Succinate (Metoprolol Succinate 50 Mg Tab.Er) 50 mg PO DAILY [facility] 234 BEDS AT [facility] Last Admin: 04/05/21 08:35 Dose: 50 mg Documented by: Metoprolol Succinate (Metoprolol Succinate 25 Mg Tab.Er) 25 mg PO BEDTIME [facility]CLUDE 234 BEDS AT [facility] Last Admin: 04/05/21 20:35 Dose: 25 mg Documented by: Ondansetron HCl (Ondansetron 4 Mg/2 Ml Sdv) 4 mg IV Q6H PRN PRN Reason: Nausea/Vomiting Oxycodone HCl (Oxycodone 5 Mg Tab) 5 mg PO Q4H PRN PRN Reason: Pain (moderate 4-6) Sodium Chloride (Sodium Chloride 0.9% 10 Ml Syringe) 10 ml FLUSH ASDIRECTED PRN PRN Reason: Keep Vein Open Last Admin: 04/02/21 17:33 Dose: 10 ml Documented by: Temazepam (Temazepam 15 Mg Cap) 15 mg PO BEDTIME PRN PRN Reason: Sleep Last Admin: 04/04/21 01:56 Dose: 15 mg Documented by: Discontinued Medications Dexamethasone (Dexamethasone 4 Mg/Ml 5 Ml Mdv) 6 mg IV ONETIME ONE Stop: 04/02/21 18:54 Last Admin: 04/02/21 19:31 Dose: 6 mg Documented by: Remdesivir 200 mg/ Sodium (Chloride) 250 mls @ 250 mls/hr IV ONETIME ONE Stop: 04/02/21 21:59 Last Admin: 04/02/21 22:45 Dose: 250 mls/hr Documented by: Metoprolol Succinate (Metoprolol Succinate 25 Mg Tab.Er) 25 mg PO ONETIME ONE Stop: 04/02/21 22:01 Last Admin: 04/02/21 22:50 Dose: 25 mg Documented by: - Exam Quality Assessment: Supplemental Oxygen (Via high flow oxygen) General: Alert, No Acute Distress Neck: Supple Lungs: Decreased Breath Sounds (But otherwise clear) Cardiovascular: Regular Rate GI/Abdominal Exam: Normal Bowel Sounds, Soft, Non-Tender Extremities: Normal Inspection Skin: Warm, Dry Psy/Mental Status: Normal Affect - Patient Data Result Diagrams: 04/03/21 05:55 04/03/21 05:55 Sepsis Event Note - Evaluation Sepsis Screening Result: No Definite Risk - Focused Exam Vital Signs: Vital Signs Temp Pulse Resp BP Pulse Ox 04/06/21 08:07 97.3 F 60 16 129/79 92 L 04/06/21 04:41 98.8 F 62 14 111/73 86 L 04/06/21 04:00 87 L 04/05/21 23:43 97.7 F 59 L 16 105/58 L 86 L 04/05/21 21:59 87 L - Problem List Review Problem List Initiated/Reviewed/Updated: Yes - Plan Plan:: 1. Acute hypoxemic respiratory failure. Secondary to acute COVID-19 pneumonitis. Requiring high flow, able to titrate down FiO2 further this morning. We will continue to try and do more so. Continue RT consult. Conventional with 19 protocol Continue antivirals, steroids, baricitinib day 4, vitamin replacement. Encourage proning and incentive spirometry. We will repeat inflammatory markers and chest x-ray maintenance exam tomorrow for further review. 2. Acute COVID-19 pneumonitis. Plan as above. 3. Hyponatremia. From excessive free water intake. Resolved. Continue intermittent checks of chemistries. 4. History of complete heart block status post pacemaker. No acute cardiac issues. All other medical comorbidities are stable and nonactive conditions, will continue home medications at regular dose. Continue hypercoagulable prophylaxis. CODE STATUS: Full code.
[2021-04-06] MEDS: Losartan 25 MG Tab PO SCH (09:29)
[2021-04-06] MEDS: Metoprolol Succinate 50 MG Tab.ER PO SCH (09:30)
[2021-04-06] MEDS: Enoxaparin 40 MG/0.4 ML Syringe SUBCUT SCH (09:34)
[2021-04-06] MEDS: Aspirin 325 MG Tab.EC PO SCH (09:34)
[2021-04-06] MEDS: Dexamethasone 10 MG/ML SDV IVPUSH SCH (09:39)
[2021-04-06] MEDS ORDERED: Polyethylene Glycol 3350 Powder 17 GM Packet PO ONE (11:11)
[2021-04-06] MEDS: Metoprolol Succinate 25 MG Tab.ER PO SCH (21:21)
[2021-04-06] MEDS: REMDESIVIR 100 MG in Sodium Chloride 0.9% 100 ML IV SCH (21:22)
[2021-04-06] MEDS: atorvaSTATin 40 MG Tab PO SCH (21:22)
[2021-04-06] MEDS: Temazepam 15 MG Cap PO PRN (21:25)
--- NOTE | 2021-04-07 07:59 | PCM.PN ---
- General Info Date of Service: 04/07/21 Admission Dx/Problem (Free Text): Admission Diagnosis/Problem Admission Diagnosis/Problem Pneumonia Subjective Update: No acute events overnight. No new nursing concerns. Patient seen and examined while sitting in the chair. Patient continues to states she feels better. Denies any increased work of breathing, shortness of breath, chest pain or pleurisy. Currently on high flow at 30 L/min and at 50% FiO2. Denies fever. Appetite is good. No issues with voiding. - Patient Data Vitals - Most Recent: Last Vital Signs Temp 96.8 F L 04/07/21 03:25 Pulse 61 04/07/21 03:26 Resp 20 04/07/21 03:25 BP 143/72 H 04/07/21 07:14 Pulse Ox 89 L 04/07/21 03:26 Weight - Most Recent: 166 lb 14.4 oz I&O - Last 24 Hours: Intake & Output 04/06/21 04/07/21 04/07/21 22:59 06:59 14:59 Intake Total 1345 700 Output Total 1400 Balance -55 700 Lab Results Last 24 Hours: Laboratory Results - last 24 hr 04/07/21 04/07/21 04/07/21 Range/Units 05:04 05:04 05:04 WBC 9.71 (3.98-10.04) K/mm3 RBC 5.10 (3.98-5.22) M/mm3 Hgb 14.1 (11.2-15.7) gm/dl Hct 43.0 (34.1-44.9) % MCV 84.3 (79.4-94.8) fl MCH 27.6 (25.6-32.2) pg MCHC 32.8 (32.2-35.5) g/dl RDW Std Deviation 43.5 (36.4-46.3) fL Plt Count 394 H D (182-369) K/mm3 MPV 9.4 (9.4-12.3) fl Neut % (Auto) 79.6 H (34.0-71.1) % Lymph % (Auto) 11.4 L (19.3-51.7) % Eddy % (Auto) 7.4 (4.7-12.5) % Eos % (Auto) 0 L (0.7-5.8) Baso % (Auto) 0.2 (0.1-1.2) % Neut # (Auto) 7.72 H (1.56-6.13) K/mm3 Lymph # (Auto) 1.11 L (1.18-3.74) K/mm3 Eddy # (Auto) 0.72 H (0.24-0.36) K/mm3 Eos # (Auto) 0.00 L (0.04-0.36) K/mm3 Baso # (Auto) 0.02 (0.01-0.08) K/mm3 Manual Slide Review Abnormal smear D-Dimer, Quantitative 1.71 H (0.19-0.50) mg/L Sodium 143 (136-145) mEq/L Potassium 4.7 (3.5-5.1) mEq/L Chloride 109 H (98-107) mEq/L Carbon Dioxide 23 (21-32) mEq/L Anion Gap 15.7 H (5-15) BUN 21 H (7-18) mg/dL Creatinine 0.9 (0.55-1.02) mg/dL Est Cr Clr Drug Dosing 58.34 mL/min Estimated GFR (MDRD) > 60 (>60) mL/min BUN/Creatinine Ratio 23.3 H (14-18) Glucose 100 H (70-99) mg/dL Calcium 8.3 L (8.5-10.1) mg/dL Med Orders - Current: Current Medications Acetaminophen (Acetaminophen 325 Mg Tab) 650 mg PO Q4H PRN PRN Reason: Pain (Mild 1-3)/fever Last Admin: 04/06/21 01:55 Dose: 650 mg Documented by: Albuterol (Albuterol 6.7 Gm Inhaler) 0 gm INH Q2H PRN PRN Reason: SOB/WHEEZING Albuterol/Ipratropium (Albuterol/Ipratropium 3.0-0.5 Mg/3 Ml Neb Soln) 3 ml NEB Q4HRRT PRN PRN Reason: SOB/WHEEZING Last Admin: 04/06/21 20:08 Dose: 3 ml Documented by: Aspirin (Aspirin 325 Mg Tab.Ec) 325 mg PO DAILY [facility] Last Admin: 04/06/21 09:34 Dose: 325 mg Documented by: Atorvastatin Calcium (Atorvastatin 40 Mg Tab) 40 mg PO BEDTIME [facility] Last Admin: 04/06/21 21:22 Dose: 40 mg Documented by: Baricitinib (Baricitinib 2 Mg Tab) 4 mg PO DAILY [facility] Stop: 04/16/21 09:01 Last Admin: 04/06/21 09:37 Dose: 4 mg Documented by: Dexamethasone (Dexamethasone 10 Mg/Ml Sdv) 6 mg IVPUSH DAILY [facility] Stop: 04/12/21 09:01 Last Admin: 04/06/21 09:39 Dose: 6 mg Documented by: Enoxaparin Sodium (Enoxaparin 40 Mg/0.4 Ml Syringe) 40 mg SUBCUT DAILY [facility] Last Admin: 04/06/21 09:34 Dose: 40 mg Documented by: Losartan Potassium (Losartan 25 Mg Tab) 25 mg PO DAILY [facility] Last Admin: 04/06/21 09:29 Dose: 25 mg Documented by: Metoprolol Succinate (Metoprolol Succinate 50 Mg Tab.Er) 50 mg PO DAILY [facility] Last Admin: 04/06/21 09:30 Dose: 50 mg Documented by: Metoprolol Succinate (Metoprolol Succinate 25 Mg Tab.Er) 25 mg PO BEDTIME [facility] Last Admin: 04/06/21 21:21 Dose: 25 mg Documented by: Ondansetron HCl (Ondansetron 4 Mg/2 Ml Sdv) 4 mg IV Q6H PRN PRN Reason: Nausea/Vomiting Oxycodone HCl (Oxycodone 5 Mg Tab) 5 mg PO Q4H PRN PRN Reason: Pain (moderate 4-6) Sodium Chloride (Sodium Chloride 0.9% 10 Ml Syringe) 10 ml FLUSH ASDIRECTED PRN PRN Reason: Keep Vein Open Last Admin: 04/02/21 17:33 Dose: 10 ml Documented by: Temazepam (Temazepam 15 Mg Cap) 15 mg PO BEDTIME PRN PRN Reason: Sleep Last Admin: 04/06/21 21:25 Dose: 15 mg Documented by: Discontinued Medications Dexamethasone (Dexamethasone 4 Mg/Ml 5 Ml Mdv) 6 mg IV ONETIME ONE Stop: 04/02/21 18:54 Last Admin: 04/02/21 19:31 Dose: 6 mg Documented by: Remdesivir 200 mg/ Sodium (Chloride) 250 mls @ 250 mls/hr IV ONETIME ONE Stop: 04/02/21 21:59 Last Admin: 04/02/21 22:45 Dose: 250 mls/hr Documented by: Remdesivir 100 mg/ Sodium (Chloride) 100 mls @ 100 mls/hr IV Q24H [facility] Stop: 04/06/21 21:59 Last Admin: 04/06/21 21:22 Dose: 100 mls/hr Documented by: Metoprolol Succinate (Metoprolol Succinate 25 Mg Tab.Er) 25 mg PO ONETIME ONE Stop: 04/02/21 22:01 Last Admin: 04/02/21 22:50 Dose: 25 mg Documented by: Polyethylene Glycol (Polyethylene Glycol 3350 Powder 17 Gm Packet) 17 gm PO ONETIME ONE Stop: 04/06/21 11:12 Last Admin: 04/06/21 12:28 Dose: 17 gm Documented by: - Exam Quality Assessment: Supplemental Oxygen General: Alert, No Acute Distress Neck: Supple, No JVD Lungs: Normal Respiratory Effort, Decreased Breath Sounds Cardiovascular: Regular Rate GI/Abdominal Exam: Normal Bowel Sounds, Soft Extremities: Normal Inspection, No Pedal Edema Skin: Warm, Dry - Patient Data Lab Results Last 24 hrs: Laboratory Results - last 24 hr 04/07/21 04/07/21 04/07/21 Range/Units 05:04 05:04 05:04 WBC 9.71 (3.98-10.04) K/mm3 RBC 5.10 (3.98-5.22) M/mm3 Hgb 14.1 (11.2-15.7) gm/dl Hct 43.0 (34.1-44.9) % MCV 84.3 (79.4-94.8) fl MCH 27.6 (25.6-32.2) pg MCHC 32.8 (32.2-35.5) g/dl RDW Std Deviation 43.5 (36.4-46.3) fL Plt Count 394 H D (182-369) K/mm3 MPV 9.4 (9.4-12.3) fl Neut % (Auto) 79.6 H (34.0-71.1) % Lymph % (Auto) 11.4 L (19.3-51.7) % Eddy % (Auto) 7.4 (4.7-12.5) % Eos % (Auto) 0 L (0.7-5.8) Baso % (Auto) 0.2 (0.1-1.2) % Neut # (Auto) 7.72 H (1.56-6.13) K/mm3 Lymph # (Auto) 1.11 L (1.18-3.74) K/mm3 Eddy # (Auto) 0.72 H (0.24-0.36) K/mm3 Eos # (Auto) 0.00 L (0.04-0.36) K/mm3 Baso # (Auto) 0.02 (0.01-0.08) K/mm3 Manual Slide Review Abnormal smear D-Dimer, Quantitative 1.71 H (0.19-0.50) mg/L Sodium 143 (136-145) mEq/L Potassium 4.7 (3.5-5.1) mEq/L Chloride 109 H (98-107) mEq/L Carbon Dioxide 23 (21-32) mEq/L Anion Gap 15.7 H (5-15) BUN 21 H (7-18) mg/dL Creatinine 0.9 (0.55-1.02) mg/dL Est Cr Clr Drug Dosing 58.34 mL/min Estimated GFR (MDRD) > 60 (>60) mL/min BUN/Creatinine Ratio 23.3 H (14-18) Glucose 100 H (70-99) mg/dL Calcium 8.3 L (8.5-10.1) mg/dL Result Diagrams: 04/07/21 05:04 04/07/21 05:04 Imaging Impressions Last 24 hrs: Chest x-ray personally reviewed. Formal reading pending. Mild improvement of disease in comparison to previous. Most notably in the right lung mccoy. Sepsis Event Note - Evaluation Sepsis Screening Result: No Definite Risk - Focused Exam Vital Signs: Vital Signs Temp Pulse Resp BP BP Pulse Ox Pulse Ox 04/07/21 07:14 143/72 H 04/07/21 03:26 61 89 L 04/07/21 03:25 96.8 F L 60 20 110/82 87 L 04/06/21 23:53 97.0 F 59 L 16 99/58 L 91 L 04/06/21 21:27 97.7 F 59 L 20 137/74 92 L 04/06/21 21:21 62 137/74 04/06/21 20:09 93 L - Problem List Review Problem List Initiated/Reviewed/Updated: Yes - My Orders Last 24 Hours: My Active Orders 04/07/21 05:04 BASIC METABOLIC PANEL,BMP [CHEM] Routine LACTATE DEHYDROGENASE,LDH [CHEM] Routine 04/07/21 06:00 Chest 1V Frontal [CR] Routine - Plan Plan:: 1. Acute hypoxemic respiratory failure. Secondary to acute COVID-19 pneumonitis. Requiring high flow, able to titrate down FiO2 further this morning. Continue to wean as tolerated. Continue RT consult. Conventional with 19 protocol Continue antivirals, steroids, baricitinib day 5, vitamin replacement. Encourage proning and incentive spirometry. Intermittent check of inflammatory markers and chest x-ray for maintenance exams. 2. Acute COVID-19 pneumonitis. Plan as above. 3. Hyponatremia. From excessive free water intake. Resolved. Continue intermittent checks of chemistries. 4. History of complete heart block status post pacemaker. No acute cardiac issues. All other medical comorbidities are stable and nonactive conditions, will continue home medications at regular dose. Continue hypercoagulable prophylaxis. CODE STATUS: Full code.
[2021-04-07] MEDS: Metoprolol Succinate 50 MG Tab.ER PO SCH (08:11)
[2021-04-07] MEDS: Losartan 25 MG Tab PO SCH (08:12)
[2021-04-07] MEDS: Aspirin 325 MG Tab.EC PO SCH (08:12)
[2021-04-07] MEDS: Dexamethasone 10 MG/ML SDV IVPUSH SCH (08:13)
[2021-04-07] MEDS: Enoxaparin 40 MG/0.4 ML Syringe SUBCUT SCH (08:13)
--- NOTE | 2021-04-07 08:48 | CR ---
Chest: Portable view of the chest was obtained. Comparison: Prior chest x-ray of 04/04/21 and chest x-ray of 04/02/21. Mild stable interstitial change is seen. There appears to be increased density within the right upper chest from prior study presumably due to COVID pneumonia. Changing atelectasis is seen within the left lung. Heart size is normal. Pacemaker is seen. Upper mediastinum is normal. Impression: 1. Stable interstitial change is seen. 2. Slight increased density within the right upper chest which is suspicious for increasing COVID pneumonia. 3. Changing atelectasis within the left lung is seen. Diagnostic code #3
[2021-04-07] MEDS: Albuterol/Ipratropium 3.0-0.5 MG/3 ML Neb Soln NEB PRN ×3 (09:15→20:24)
[2021-04-07] MEDS ORDERED: Magnesium Hydroxide 400 MG/5 ML Susp 30 ML Cup PO ONE (13:00)
[2021-04-07] MEDS: Metoprolol Succinate 25 MG Tab.ER PO SCH (20:49)
[2021-04-07] MEDS: atorvaSTATin 40 MG Tab PO SCH (20:49)
[2021-04-07] MEDS: Temazepam 15 MG Cap PO PRN (21:01)
[2021-04-08] MEDS: Albuterol/Ipratropium 3.0-0.5 MG/3 ML Neb Soln NEB PRN ×2 (08:38→16:33)
[2021-04-08] MEDS: Dexamethasone 10 MG/ML SDV IVPUSH SCH (08:46)
[2021-04-08] MEDS: Aspirin 325 MG Tab.EC PO SCH (08:47)
[2021-04-08] MEDS: Losartan 25 MG Tab PO SCH (08:47)
[2021-04-08] MEDS: Enoxaparin 40 MG/0.4 ML Syringe SUBCUT SCH (08:47)
[2021-04-08] MEDS: Metoprolol Succinate 50 MG Tab.ER PO SCH (08:48)
[2021-04-08] MEDS: Acetaminophen 325 MG Tab PO PRN (15:30)
--- NOTE | 2021-04-08 16:50 | PCM.PN ---
- General Info Date of Service: 04/08/21 Admission Dx/Problem (Free Text): Admission Diagnosis/Problem Admission Diagnosis/Problem Pneumonia Subjective Update: He is feeling better. Does not have any new complaints. Denies fever, chills, nausea, vomiting,. She is now on 35 L No overnight events - Review of Systems Systems Review Comment:: Positive for shortness of breath. All other systems were reviewed and negative. - Patient Data Vitals - Most Recent: Last Vital Signs Temp 36.7 C 04/08/21 14:59 Pulse 76 04/08/21 14:59 Resp 18 04/08/21 14:59 BP 121/94 H 04/08/21 14:59 Pulse Ox 95 04/08/21 16:33 Weight - Most Recent: 75.977 kg I&O - Last 24 Hours: Intake & Output 04/08/21 04/08/21 04/08/21 06:59 14:59 22:59 Intake Total 1200 800 Output Total 1450 1500 Balance -250 -700 Med Orders - Current: Current Medications Acetaminophen (Acetaminophen 325 Mg Tab) 650 mg PO Q4H PRN PRN Reason: Pain (Mild 1-3)/fever Last Admin: 04/08/21 15:30 Dose: 650 mg Documented by: Albuterol (Albuterol 6.7 Gm Inhaler) 0 gm INH Q2H PRN PRN Reason: SOB/WHEEZING Albuterol/Ipratropium (Albuterol/Ipratropium 3.0-0.5 Mg/3 Ml Neb Soln) 3 ml NEB Q4HRRT PRN PRN Reason: SOB/WHEEZING Last Admin: 04/08/21 16:33 Dose: 3 ml Documented by: Aspirin (Aspirin 325 Mg Tab.Ec) 325 mg PO DAILY [facility] Last Admin: 04/08/21 08:47 Dose: 325 mg Documented by: Atorvastatin Calcium (Atorvastatin 40 Mg Tab) 40 mg PO BEDTIME [facility] Last Admin: 04/07/21 20:49 Dose: 40 mg Documented by: Baricitinib (Baricitinib 2 Mg Tab) 4 mg PO DAILY [facility] Stop: 04/16/21 09:01 Last Admin: 04/08/21 08:47 Dose: 4 mg Documented by: Dexamethasone (Dexamethasone 10 Mg/Ml Sdv) 6 mg IVPUSH DAILY [facility] Stop: 04/12/21 09:01 Last Admin: 04/08/21 08:46 Dose: 6 mg Documented by: Enoxaparin Sodium (Enoxaparin 40 Mg/0.4 Ml Syringe) 40 mg SUBCUT DAILY [facility] Last Admin: 04/08/21 08:47 Dose: 40 mg Documented by: Losartan Potassium (Losartan 25 Mg Tab) 25 mg PO DAILY [facility] Last Admin: 04/08/21 08:47 Dose: 25 mg Documented by: Metoprolol Succinate (Metoprolol Succinate 50 Mg Tab.Er) 50 mg PO DAILY [facility] Last Admin: 04/08/21 08:48 Dose: 50 mg Documented by: Metoprolol Succinate (Metoprolol Succinate 25 Mg Tab.Er) 25 mg PO BEDTIME [facility] Last Admin: 04/07/21 20:49 Dose: 25 mg Documented by: Ondansetron HCl (Ondansetron 4 Mg/2 Ml Sdv) 4 mg IV Q6H PRN PRN Reason: Nausea/Vomiting Oxycodone HCl (Oxycodone 5 Mg Tab) 5 mg PO Q4H PRN PRN Reason: Pain (moderate 4-6) Sodium Chloride (Sodium Chloride 0.9% 10 Ml Syringe) 10 ml FLUSH ASDIRECTED PRN PRN Reason: Keep Vein Open Last Admin: 04/02/21 17:33 Dose: 10 ml Documented by: Temazepam (Temazepam 15 Mg Cap) 15 mg PO BEDTIME PRN PRN Reason: Sleep Last Admin: 04/07/21 21:01 Dose: 15 mg Documented by: Discontinued Medications Dexamethasone (Dexamethasone 4 Mg/Ml 5 Ml Mdv) 6 mg IV ONETIME ONE Stop: 04/02/21 18:54 Last Admin: 04/02/21 19:31 Dose: 6 mg Documented by: Remdesivir 200 mg/ Sodium (Chloride) 250 mls @ 250 mls/hr IV ONETIME ONE Stop: 04/02/21 21:59 Last Admin: 04/02/21 22:45 Dose: 250 mls/hr Documented by: Remdesivir 100 mg/ Sodium (Chloride) 100 mls @ 100 mls/hr IV Q24H [facility] Stop: 04/06/21 21:59 Last Admin: 04/06/21 21:22 Dose: 100 mls/hr Documented by: Magnesium Hydroxide (Magnesium Hydroxide 400 Mg/5 Ml Susp 30 Ml Cup) 30 ml PO ONETIME ONE Stop: 04/07/21 13:01 Metoprolol Succinate (Metoprolol Succinate 25 Mg Tab.Er) 25 mg PO ONETIME ONE Stop: 04/02/21 22:01 Last Admin: 04/02/21 22:50 Dose: 25 mg Documented by: Polyethylene Glycol (Polyethylene Glycol 3350 Powder 17 Gm Packet) 17 gm PO ONETIME ONE Stop: 04/06/21 11:12 Last Admin: 04/06/21 12:28 Dose: 17 gm Documented by: - Exam General: Alert, Oriented, Cooperative HEENT: Pupils Equal, Pupils Reactive, EOMI Neck: Trachea Midline, No JVD, No Thyromegaly Lungs: Normal Respiratory Effort, Decreased Breath Sounds Cardiovascular: Regular Rate, Regular Rhythm GI/Abdominal Exam: Normal Bowel Sounds, Soft, Non-Tender, No Organomegaly Extremities: Normal Inspection, Normal Range of Motion, Non-Tender Skin: Warm, Dry, Intact Neurological: No New Focal Deficit, Normal Speech, Normal Tone, Strength Equal Bilateral, Reflexes Equal Bilateral, Sensation Intact Psy/Mental Status: Alert, Normal Affect, Normal Mood - Patient Data Result Diagrams: 04/07/21 05:04 04/07/21 05:04 Sepsis Event Note - Evaluation Sepsis Screening Result: No Definite Risk - Focused Exam Vital Signs: Vital Signs Temp Temp Pulse Pulse Resp BP BP 04/08/21 16:33 04/08/21 14:59 36.7 C 76 18 121/94 H 04/08/21 12:20 36.2 C 78 21 H 103/59 L 04/08/21 08:48 64 134/73 04/08/21 08:47 134/73 04/08/21 08:39 04/08/21 08:23 36.1 C 64 20 134/73 04/08/21 05:00 36.1 C 64 20 136/67 Pulse Ox Pulse Ox 04/08/21 16:33 95 04/08/21 14:59 92 L 04/08/21 12:20 95 04/08/21 08:48 04/08/21 08:47 04/08/21 08:39 92 L 04/08/21 08:23 91 L 04/08/21 05:00 95 - Problem List Review Problem List Initiated/Reviewed/Updated: Yes - Assessment Assessment:: 66-year-old female whose developed COVID-19 14 days ago started becoming fatigued around 11 days ago before admission. Patient was not vaccinated against COVID-19. Positive covid test on admission, 04/02 1. Acute hypoxemic respiratory failure. Secondary to acute COVID-19 pneumonitis. Requiring high flow, able to titrate down FiO2 further this morning. Continue to wean as tolerated. Keep SpO2 > 90% Continue RT consult. Conventional with 19 protocol Continue baricitinib 4 mg daily, dexamethasone 6 mg IV daily, vitamin replacement. Lovenox 75 mg twice daily Encourage proning and incentive spirometry. Intermittent check of inflammatory markers and chest x-ray for maintenance exams. 2. Acute COVID-19 pneumonitis. Plan as above. 3. Hyponatremia. From excessive free water intake. Resolved. Continue intermittent checks of chemistries. 4. History of complete heart block status post pacemaker. No acute cardiac issues. All other medical comorbidities are stable and nonactive conditions, will continue home medications at regular dose. Continue hypercoagulable prophylaxis-Lovenox. CODE STATUS: Full code. Length of stay greater than 96 hours because of slow response to treatment - Plan Plan:: 1. Acute hypoxemic respiratory failure. Secondary to acute COVID-19 pneumonitis. Requiring high flow, able to titrate down FiO2 further this morning. Continue to wean as tolerated. Continue RT consult. Conventional with 19 protocol Continue antivirals, steroids, baricitinib day 5, vitamin replacement. Encourage proning and incentive spirometry. Intermittent check of inflammatory markers and chest x-ray for maintenance exams. 2. Acute COVID-19 pneumonitis. Plan as above. 3. Hyponatremia. From excessive free water intake. Resolved. Continue intermittent checks of chemistries. 4. History of complete heart block status post pacemaker. No acute cardiac issues. All other medical comorbidities are stable and nonactive conditions, will continue home medications at regular dose. Continue hypercoagulable prophylaxis. CODE STATUS: Full code.
[2021-04-08] MEDS: atorvaSTATin 40 MG Tab PO SCH (20:38)
[2021-04-08] MEDS: Enoxaparin 80 MG/0.8 ML Syringe SUBCUT SCH (20:38)
[2021-04-08] MEDS: Metoprolol Succinate 25 MG Tab.ER PO SCH (20:38)
[2021-04-09] MEDS: Dexamethasone 10 MG/ML SDV IVPUSH SCH (08:06)
[2021-04-09] MEDS: Enoxaparin 80 MG/0.8 ML Syringe SUBCUT SCH ×2 (08:07→20:43)
[2021-04-09] MEDS: Aspirin 325 MG Tab.EC PO SCH (08:07)
[2021-04-09] MEDS: Metoprolol Succinate 50 MG Tab.ER PO SCH (08:07)
[2021-04-09] MEDS: Losartan 25 MG Tab PO SCH (08:08)
[2021-04-09] MEDS: Albuterol/Ipratropium 3.0-0.5 MG/3 ML Neb Soln NEB PRN ×3 (09:44→20:48)
[2021-04-09] MEDS ORDERED: Polyethylene Glycol 3350 Powder 17 GM Packet PO PRN (11:30)
--- NOTE | 2021-04-09 12:27 | PCM.PN ---
- General Info Date of Service: 04/09/21 Admission Dx/Problem (Free Text): Admission Diagnosis/Problem Admission Diagnosis/Problem Pneumonia Subjective Update: He is feeling better. Does not have any new complaints. Denies fever, chills, nausea, vomiting,. She is now on 3-6 L No overnight events - Review of Systems Systems Review Comment:: Positive for shortness of breath. All other systems were reviewed and negative. - Patient Data Vitals - Most Recent: Last Vital Signs Temp 36.1 C 04/09/21 07:57 Pulse 61 04/09/21 08:07 Resp 20 04/09/21 07:57 BP 119/67 04/09/21 08:08 Pulse Ox 95 04/09/21 09:50 Weight - Most Recent: 75.342 kg I&O - Last 24 Hours: Intake & Output 04/08/21 04/09/21 04/09/21 22:59 06:59 14:59 Intake Total 800 800 Output Total 1500 2450 Balance -700 -1650 Med Orders - Current: Current Medications Acetaminophen (Acetaminophen 325 Mg Tab) 650 mg PO Q4H PRN PRN Reason: Pain (Mild 1-3)/fever Last Admin: 04/08/21 15:30 Dose: 650 mg Documented by: Albuterol (Albuterol 6.7 Gm Inhaler) 0 gm INH Q2H PRN PRN Reason: SOB/WHEEZING Albuterol/Ipratropium (Albuterol/Ipratropium 3.0-0.5 Mg/3 Ml Neb Soln) 3 ml NEB Q4HRRT PRN PRN Reason: SOB/WHEEZING Last Admin: 04/09/21 09:44 Dose: 3 ml Documented by: Aspirin (Aspirin 81 Mg Tab.Chew) 81 mg PO DAILY [facility] Atorvastatin Calcium (Atorvastatin 40 Mg Tab) 40 mg PO BEDTIME [facility] Last Admin: 04/08/21 20:38 Dose: 40 mg Documented by: Baricitinib (Baricitinib 2 Mg Tab) 4 mg PO DAILY [facility] Stop: 04/16/21 09:01 Last Admin: 04/09/21 08:07 Dose: 4 mg Documented by: Dexamethasone (Dexamethasone 10 Mg/Ml Sdv) 6 mg IVPUSH DAILY [facility] Stop: 04/12/21 09:01 Last Admin: 04/09/21 08:06 Dose: 6 mg Documented by: Enoxaparin Sodium (Enoxaparin 80 Mg/0.8 Ml Syringe) 80 mg SUBCUT BID [facility] Last Admin: 04/09/21 08:07 Dose: 80 mg Documented by: Losartan Potassium (Losartan 25 Mg Tab) 25 mg PO DAILY [facility] Last Admin: 04/09/21 08:08 Dose: 25 mg Documented by: Metoprolol Succinate (Metoprolol Succinate 50 Mg Tab.Er) 50 mg PO DAILY [facility] Last Admin: 04/09/21 08:07 Dose: 50 mg Documented by: Metoprolol Succinate (Metoprolol Succinate 25 Mg Tab.Er) 25 mg PO BEDTIME [facility] Last Admin: 04/08/21 20:38 Dose: 25 mg Documented by: Ondansetron HCl (Ondansetron 4 Mg/2 Ml Sdv) 4 mg IV Q6H PRN PRN Reason: Nausea/Vomiting Oxycodone HCl (Oxycodone 5 Mg Tab) 5 mg PO Q4H PRN PRN Reason: Pain (moderate 4-6) Polyethylene Glycol (Polyethylene Glycol 3350 Powder 17 Gm Packet) 17 gm PO DAILY PRN PRN Reason: Constipation Sodium Chloride (Sodium Chloride 0.9% 10 Ml Syringe) 10 ml FLUSH ASDIRECTED PRN PRN Reason: Keep Vein Open Last Admin: 04/02/21 17:33 Dose: 10 ml Documented by: Temazepam (Temazepam 15 Mg Cap) 15 mg PO BEDTIME PRN PRN Reason: Sleep Last Admin: 04/07/21 21:01 Dose: 15 mg Documented by: Discontinued Medications Aspirin (Aspirin 325 Mg Tab.Ec) 325 mg PO DAILY [facility] Last Admin: 04/09/21 08:07 Dose: 325 mg Documented by: Dexamethasone (Dexamethasone 4 Mg/Ml 5 Ml Mdv) 6 mg IV ONETIME ONE Stop: 04/02/21 18:54 Last Admin: 04/02/21 19:31 Dose: 6 mg Documented by: Enoxaparin Sodium (Enoxaparin 40 Mg/0.4 Ml Syringe) 40 mg SUBCUT DAILY [facility] Last Admin: 04/08/21 08:47 Dose: 40 mg Documented by: Remdesivir 200 mg/ Sodium (Chloride) 250 mls @ 250 mls/hr IV ONETIME ONE Stop: 04/02/21 21:59 Last Admin: 04/02/21 22:45 Dose: 250 mls/hr Documented by: Remdesivir 100 mg/ Sodium (Chloride) 100 mls @ 100 mls/hr IV Q24H [facility] Stop: 04/06/21 21:59 Last Admin: 04/06/21 21:22 Dose: 100 mls/hr Documented by: Magnesium Hydroxide (Magnesium Hydroxide 400 Mg/5 Ml Susp 30 Ml Cup) 30 ml PO ONETIME ONE Stop: 04/07/21 13:01 Metoprolol Succinate (Metoprolol Succinate 25 Mg Tab.Er) 25 mg PO ONETIME ONE Stop: 04/02/21 22:01 Last Admin: 04/02/21 22:50 Dose: 25 mg Documented by: Polyethylene Glycol (Polyethylene Glycol 3350 Powder 17 Gm Packet) 17 gm PO ONETIME ONE Stop: 04/06/21 11:12 Last Admin: 04/06/21 12:28 Dose: 17 gm Documented by: - Exam Physical Findings Comments:: General: Alert, Oriented, Cooperative HEENT: Pupils Equal, Pupils Reactive, EOMI Neck: Trachea Midline, No JVD, No Thyromegaly Lungs: Normal Respiratory Effort, Decreased Breath Sounds Cardiovascular: Regular Rate, Regular Rhythm GI/Abdominal Exam: Normal Bowel Sounds, Soft, Non-Tender, No Organomegaly Extremities: Normal Inspection, Normal Range of Motion, Non-Tender Skin: Warm, Dry, Intact Neurological: No New Focal Deficit, Normal Speech, Normal Tone, Strength Equal Bilateral, Reflexes Equal Bilateral, Sensation Intact Psy/Mental Status: Alert, Normal Affect, Normal Mood - Patient Data Result Diagrams: 04/07/21 05:04 04/07/21 05:04 Sepsis Event Note - Evaluation Sepsis Screening Result: No Definite Risk - Focused Exam Vital Signs: Vital Signs Temp Pulse Resp BP Pulse Ox Pulse Ox Pulse Ox 04/09/21 09:50 95 04/09/21 09:47 97 04/09/21 09:45 94 L 04/09/21 08:08 119/67 04/09/21 08:07 61 119/67 04/09/21 07:57 36.1 C 61 20 119/67 90 L 04/09/21 04:19 36.4 C 62 16 103/66 89 L 04/09/21 01:55 36.3 C 61 18 127/79 89 L - Problem List Review Problem List Initiated/Reviewed/Updated: Yes - My Orders Last 24 Hours: My Active Orders 04/08/21 21:00 Enoxaparin [Lovenox] 80 mg SUBCUT BID 04/09/21 11:30 polyethylene glycoL 3350 [MiraLAX] 17 gm PO DAILY PRN 04/10/21 05:00 CBC WITH AUTO DIFF [HEME] DAILY COMPREHENSIVE METABOLIC PN,CMP [CHEM] DAILY CRP [C-REACTIVE PROTEIN] [CHEM] DAILY 04/10/21 09:00 Aspirin 81 mg PO DAILY 04/11/21 05:00 CBC WITH AUTO DIFF [HEME] DAILY COMPREHENSIVE METABOLIC PN,CMP [CHEM] DAILY CRP [C-REACTIVE PROTEIN] [CHEM] DAILY 04/12/21 05:00 CBC WITH AUTO DIFF [HEME] DAILY COMPREHENSIVE METABOLIC PN,CMP [CHEM] DAILY CRP [C-REACTIVE PROTEIN] [CHEM] DAILY 04/13/21 05:00 CBC WITH AUTO DIFF [HEME] DAILY COMPREHENSIVE METABOLIC PN,CMP [CHEM] DAILY CRP [C-REACTIVE PROTEIN] [CHEM] DAILY 04/14/21 05:00 CBC WITH AUTO DIFF [HEME] DAILY COMPREHENSIVE METABOLIC PN,CMP [CHEM] DAILY CRP [C-REACTIVE PROTEIN] [CHEM] DAILY - Assessment Assessment:: 66-year-old female whose developed COVID-19 14 days ago started becoming fatigued around 11 days ago before admission. Patient was not vaccinated against COVID-19. Positive covid test on admission, 04/02 1. Acute hypoxemic respiratory failure. Secondary to acute COVID-19 pneumonitis. Continue to wean as tolerated. Keep SpO2 > 90% Continue RT consult. Conventional with Covid 19 protocol Continue baricitinib 4 mg daily, dexamethasone 6 mg IV daily, vitamin replacemen t. Lovenox 80 mg twice daily Encourage proning and incentive spirometry. Intermittent check of inflammatory markers and chest x-ray for maintenance exams. 2. Acute COVID-19 pneumonitis. Plan as above. 3. Hyponatremia. From excessive free water intake. Resolved. Continue intermittent checks of chemistries. 4. History of complete heart block status post pacemaker. No acute cardiac issues. All other medical comorbidities are stable and nonactive conditions, will continue home medications at regular dose. Continue hypercoagulable prophylaxis-Lovenox. CODE STATUS: Full code. Length of stay greater than 96 hours because of slow response to treatment - Plan Plan:: 1. Acute hypoxemic respiratory failure. Secondary to acute COVID-19 pneumonitis. Requiring high flow, able to titrate down FiO2 further this morning. Continue to wean as tolerated. Continue RT consult. Conventional with 19 protocol Continue antivirals, steroids, baricitinib day 5, vitamin replacement. Encourage proning and incentive spirometry. Intermittent check of inflammatory markers and chest x-ray for maintenance exams. 2. Acute COVID-19 pneumonitis. Plan as above. 3. Hyponatremia. From excessive free water intake. Resolved. Continue intermittent checks of chemistries. 4. History of complete heart block status post pacemaker. No acute cardiac issues. All other medical comorbidities are stable and nonactive conditions, will continue home medications at regular dose. Continue hypercoagulable prophylaxis. CODE STATUS: Full code.
[2021-04-09] MEDS: atorvaSTATin 40 MG Tab PO SCH (20:42)
[2021-04-09] MEDS: Metoprolol Succinate 25 MG Tab.ER PO SCH (20:42)
[2021-04-10] MEDS: Metoprolol Succinate 50 MG Tab.ER PO SCH (08:16)
[2021-04-10] MEDS: Aspirin 81 MG Tab.Chew PO SCH (08:16)
[2021-04-10] MEDS: Enoxaparin 80 MG/0.8 ML Syringe SUBCUT SCH ×2 (08:17→20:18)
[2021-04-10] MEDS: Dexamethasone 10 MG/ML SDV IVPUSH SCH (08:17)
[2021-04-10] MEDS: Losartan 25 MG Tab PO SCH (08:17)
--- NOTE | 2021-04-10 12:17 | PCM.PN ---
- General Info Date of Service: 04/10/21 Admission Dx/Problem (Free Text): Admission Diagnosis/Problem Admission Diagnosis/Problem Pneumonia Subjective Update: He is feeling better. Does not have any new complaints. Denies fever, chills, nausea, vomiting,. His condition continues to improve. She is now on 2.5 to 3 L. She was on 3-6 L yesterday No overnight events - Review of Systems Systems Review Comment:: Positive for shortness of breath. All other systems were reviewed and negative. - Patient Data Vitals - Most Recent: Last Vital Signs Temp 36.3 C 04/10/21 08:11 Pulse 61 04/10/21 08:16 Resp 20 04/10/21 08:11 BP 100/74 04/10/21 08:17 Pulse Ox 95 04/10/21 08:11 Weight - Most Recent: 76.294 kg I&O - Last 24 Hours: Intake & Output 04/09/21 04/10/21 04/10/21 22:59 06:59 14:59 Intake Total 975 1600 Output Total 700 Balance 275 1600 Lab Results Last 24 Hours: Laboratory Results - last 24 hr 04/10/21 04/10/21 04/10/21 Range/Units 05:52 05:52 08:55 WBC 11.24 H (3.98-10.04) K/mm3 RBC 5.19 (3.98-5.22) M/mm3 Hgb 14.3 (11.2-15.7) gm/dl Hct 43.8 (34.1-44.9) % MCV 84.4 (79.4-94.8) fl MCH 27.6 (25.6-32.2) pg MCHC 32.6 (32.2-35.5) g/dl RDW Std Deviation 43.9 (36.4-46.3) fL Plt Count 521 H D (182-369) K/mm3 MPV 9.5 (9.4-12.3) fl Neut % (Auto) 78.5 H (34.0-71.1) % Lymph % (Auto) 10.0 L (19.3-51.7) % [place] % (Auto) 9.9 (4.7-12.5) % Eos % (Auto) 0.1 L (0.7-5.8) Baso % (Auto) 0.1 (0.1-1.2) % Neut # (Auto) 8.83 H (1.56-6.13) K/mm3 Lymph # (Auto) 1.12 L (1.18-3.74) K/mm3 [place] # (Auto) 1.11 H (0.24-0.36) K/mm3 Eos # (Auto) 0.01 L (0.04-0.36) K/mm3 Baso # (Auto) 0.01 (0.01-0.08) K/mm3 Sodium 141 137 (136-145) mEq/L Potassium 5.1 4.6 (3.5-5.1) mEq/L Chloride 106 103 (98-107) mEq/L Carbon Dioxide 27 27 (21-32) mEq/L Anion Gap 13.1 11.6 (5-15) BUN 18 19 H (7-18) mg/dL Creatinine 1.0 1.0 (0.55-1.02) mg/dL Est Cr Clr Drug Dosing 52.50 52.50 mL/min Estimated GFR (MDRD) 56 56 (>60) mL/min BUN/Creatinine Ratio 18.0 19.0 H (14-18) Glucose 98 114 H (70-99) mg/dL Calcium 8.5 8.5 (8.5-10.1) mg/dL Total Bilirubin 0.6 (0.2-1.0) mg/dL AST 27 (15-37) U/L ALT 74 H (14-59) U/L Alkaline Phosphatase 105 (46-116) U/L C-Reactive Protein <0.2 (<1.0) mg/dL Total Protein 5.7 L (6.4-8.2) g/dl Albumin 3.0 L (3.4-5.0) g/dl Globulin 2.7 gm/dL Albumin/Globulin Ratio 1.1 (1-2) Med Orders - Current: Current Medications Acetaminophen (Acetaminophen 325 Mg Tab) 650 mg PO Q4H PRN PRN Reason: Pain (Mild 1-3)/fever Last Admin: 04/08/21 15:30 Dose: 650 mg Documented by: Albuterol (Albuterol 6.7 Gm Inhaler) 0 gm INH Q2H PRN PRN Reason: SOB/WHEEZING Albuterol/Ipratropium (Albuterol/Ipratropium 3.0-0.5 Mg/3 Ml Neb Soln) 3 ml NEB Q4HRRT PRN PRN Reason: SOB/WHEEZING Last Admin: 04/09/21 20:48 Dose: 3 ml Documented by: Aspirin (Aspirin 81 Mg Tab.Chew) 81 mg PO DAILY [facility] Last Admin: 04/10/21 08:16 Dose: 81 mg Documented by: Atorvastatin Calcium (Atorvastatin 40 Mg Tab) 40 mg PO BEDTIME [facility] Last Admin: 04/09/21 20:42 Dose: 40 mg Documented by: Baricitinib (Baricitinib 2 Mg Tab) 4 mg PO DAILY [facility] Stop: 04/16/21 09:01 Last Admin: 04/10/21 08:15 Dose: 4 mg Documented by: Dexamethasone (Dexamethasone 10 Mg/Ml Sdv) 6 mg IVPUSH DAILY [facility] Stop: 04/11/21 09:01 Last Admin: 04/10/21 08:17 Dose: 6 mg Documented by: Enoxaparin Sodium (Enoxaparin 80 Mg/0.8 Ml Syringe) 80 mg SUBCUT BID [facility] Last Admin: 04/10/21 08:17 Dose: 80 mg Documented by: Losartan Potassium (Losartan 25 Mg Tab) 25 mg PO DAILY [facility] Last Admin: 04/10/21 08:17 Dose: 25 mg Documented by: Metoprolol Succinate (Metoprolol Succinate 50 Mg Tab.Er) 50 mg PO DAILY [facility] Last Admin: 04/10/21 08:16 Dose: 50 mg Documented by: Metoprolol Succinate (Metoprolol Succinate 25 Mg Tab.Er) 25 mg PO BEDTIME [facility] Last Admin: 04/09/21 20:42 Dose: 25 mg Documented by: Ondansetron HCl (Ondansetron 4 Mg/2 Ml Sdv) 4 mg IV Q6H PRN PRN Reason: Nausea/Vomiting Oxycodone HCl (Oxycodone 5 Mg Tab) 5 mg PO Q4H PRN PRN Reason: Pain (moderate 4-6) Polyethylene Glycol (Polyethylene Glycol 3350 Powder 17 Gm Packet) 17 gm PO DAILY PRN PRN Reason: Constipation Last Admin: 04/09/21 14:33 Dose: 17 gm Documented by: Sodium Chloride (Sodium Chloride 0.9% 10 Ml Syringe) 10 ml FLUSH ASDIRECTED PRN PRN Reason: Keep Vein Open Last Admin: 04/02/21 17:33 Dose: 10 ml Documented by: Temazepam (Temazepam 15 Mg Cap) 15 mg PO BEDTIME PRN PRN Reason: Sleep Last Admin: 04/07/21 21:01 Dose: 15 mg Documented by: Discontinued Medications Aspirin (Aspirin 325 Mg Tab.Ec) 325 mg PO DAILY [facility] Last Admin: 04/09/21 08:07 Dose: 325 mg Documented by: Dexamethasone (Dexamethasone 4 Mg/Ml 5 Ml Mdv) 6 mg IV ONETIME ONE Stop: 04/02/21 18:54 Last Admin: 04/02/21 19:31 Dose: 6 mg Documented by: Enoxaparin Sodium (Enoxaparin 40 Mg/0.4 Ml Syringe) 40 mg SUBCUT DAILY [facility] Last Admin: 04/08/21 08:47 Dose: 40 mg Documented by: Remdesivir 200 mg/ Sodium (Chloride) 250 mls @ 250 mls/hr IV ONETIME ONE Stop: 04/02/21 21:59 Last Admin: 04/02/21 22:45 Dose: 250 mls/hr Documented by: Remdesivir 100 mg/ Sodium (Chloride) 100 mls @ 100 mls/hr IV Q24H [facility] Stop: 04/06/21 21:59 Last Admin: 04/06/21 21:22 Dose: 100 mls/hr Documented by: Magnesium Hydroxide (Magnesium Hydroxide 400 Mg/5 Ml Susp 30 Ml Cup) 30 ml PO ONETIME ONE Stop: 04/07/21 13:01 Metoprolol Succinate (Metoprolol Succinate 25 Mg Tab.Er) 25 mg PO ONETIME ONE Stop: 04/02/21 22:01 Last Admin: 04/02/21 22:50 Dose: 25 mg Documented by: Polyethylene Glycol (Polyethylene Glycol 3350 Powder 17 Gm Packet) 17 gm PO ONETIME ONE Stop: 04/06/21 11:12 Last Admin: 04/06/21 12:28 Dose: 17 gm Documented by: - Exam Physical Findings Comments:: General: Alert, Oriented, Cooperative HEENT: Pupils Equal, Pupils Reactive, EOMI Neck: Trachea Midline, No JVD, No Thyromegaly Lungs: Normal Respiratory Effort, Decreased Breath Sounds Cardiovascular: Regular Rate, Regular Rhythm GI/Abdominal Exam: Normal Bowel Sounds, Soft, Non-Tender, No Organomegaly Extremities: Normal Inspection, Normal Range of Motion, Non-Tender Skin: Warm, Dry, Intact Neurological: No New Focal Deficit, Normal Speech, Normal Tone, Strength Equal Bilateral, Reflexes Equal Bilateral, Sensation Intact Psy/Mental Status: Alert, Normal Affect, Normal Mood - Patient Data Lab Results Last 24 hrs: Laboratory Results - last 24 hr 04/10/21 04/10/21 04/10/21 Range/Units 05:52 05:52 08:55 WBC 11.24 H (3.98-10.04) K/mm3 RBC 5.19 (3.98-5.22) M/mm3 Hgb 14.3 (11.2-15.7) gm/dl Hct 43.8 (34.1-44.9) % MCV 84.4 (79.4-94.8) fl MCH 27.6 (25.6-32.2) pg MCHC 32.6 (32.2-35.5) g/dl RDW Std Deviation 43.9 (36.4-46.3) fL Plt Count 521 H D (182-369) K/mm3 MPV 9.5 (9.4-12.3) fl Neut % (Auto) 78.5 H (34.0-71.1) % Lymph % (Auto) 10.0 L (19.3-51.7) % [place] % (Auto) 9.9 (4.7-12.5) % Eos % (Auto) 0.1 L (0.7-5.8) Baso % (Auto) 0.1 (0.1-1.2) % Neut # (Auto) 8.83 H (1.56-6.13) K/mm3 Lymph # (Auto) 1.12 L (1.18-3.74) K/mm3 [place] # (Auto) 1.11 H (0.24-0.36) K/mm3 Eos # (Auto) 0.01 L (0.04-0.36) K/mm3 Baso # (Auto) 0.01 (0.01-0.08) K/mm3 Sodium 141 137 (136-145) mEq/L Potassium 5.1 4.6 (3.5-5.1) mEq/L Chloride 106 103 (98-107) mEq/L Carbon Dioxide 27 27 (21-32) mEq/L Anion Gap 13.1 11.6 (5-15) BUN 18 19 H (7-18) mg/dL Creatinine 1.0 1.0 (0.55-1.02) mg/dL Est Cr Clr Drug Dosing 52.50 52.50 mL/min Estimated GFR (MDRD) 56 56 (>60) mL/min BUN/Creatinine Ratio 18.0 19.0 H (14-18) Glucose 98 114 H (70-99) mg/dL Calcium 8.5 8.5 (8.5-10.1) mg/dL Total Bilirubin 0.6 (0.2-1.0) mg/dL AST 27 (15-37) U/L ALT 74 H (14-59) U/L Alkaline Phosphatase 105 (46-116) U/L C-Reactive Protein <0.2 (<1.0) mg/dL Total Protein 5.7 L (6.4-8.2) g/dl Albumin 3.0 L (3.4-5.0) g/dl Globulin 2.7 gm/dL Albumin/Globulin Ratio 1.1 (1-2) Result Diagrams: 04/10/21 05:52 04/10/21 08:55 Sepsis Event Note - Evaluation Sepsis Screening Result: No Definite Risk - Focused Exam Vital Signs: Vital Signs Temp Pulse Resp BP Pulse Ox 04/10/21 08:17 100/74 04/10/21 08:16 61 100/74 04/10/21 08:11 36.3 C 61 20 100/74 95 04/10/21 04:23 36.6 C 64 20 109/63 91 L - Problem List Review Problem List Initiated/Reviewed/Updated: Yes - My Orders Last 24 Hours: My Active Orders 04/09/21 11:30 polyethylene glycoL 3350 [MiraLAX] 17 gm PO DAILY PRN 04/10/21 09:00 Aspirin 81 mg PO DAILY 04/11/21 05:00 CBC WITH AUTO DIFF [HEME] DAILY COMPREHENSIVE METABOLIC PN,CMP [CHEM] DAILY CRP [C-REACTIVE PROTEIN] [CHEM] DAILY 04/12/21 05:00 CBC WITH AUTO DIFF [HEME] DAILY COMPREHENSIVE METABOLIC PN,CMP [CHEM] DAILY CRP [C-REACTIVE PROTEIN] [CHEM] DAILY 04/13/21 05:00 CBC WITH AUTO DIFF [HEME] DAILY COMPREHENSIVE METABOLIC PN,CMP [CHEM] DAILY CRP [C-REACTIVE PROTEIN] [CHEM] DAILY 04/14/21 05:00 CBC WITH AUTO DIFF [HEME] DAILY COMPREHENSIVE METABOLIC PN,CMP [CHEM] DAILY CRP [C-REACTIVE PROTEIN] [CHEM] DAILY - Assessment Assessment:: 66-year-old female whose developed COVID-19 14 days ago started becoming fatigued around 11 days ago before admission. Patient was not vaccinated a gainst COVID-19. Positive covid test on admission, 04/02 1. Acute hypoxemic respiratory failure. Secondary to acute COVID-19 pneumonitis. Continue to wean as tolerated. Keep SpO2 > 90% Continue RT consult. Conventional with Covid 19 protocol Continue baricitinib 4 mg daily, dexamethasone 6 mg IV daily, vitamin replacement. Lovenox 80 mg twice daily Encourage proning and incentive spirometry. Intermittent check of inflammatory markers and chest x-ray for maintenance exams. 2. Acute COVID-19 pneumonitis. Plan as above. 3. Hyponatremia, resolved From excessive free water intake. Continue intermittent checks of chemistries. 4. History of complete heart block status post pacemaker. No acute cardiac issues. All other medical comorbidities are stable and nonactive conditions, will contin ue home medications at regular dose. Continue hypercoagulable prophylaxis-Lovenox. CODE STATUS: Full code. Length of stay greater than 96 hours because of slow response to treatment - Plan Plan:: 1. Acute hypoxemic respiratory failure. Secondary to acute COVID-19 pneumonitis. Requiring high flow, able to titrate down FiO2 further this morning. Continue to wean as tolerated. Continue RT consult. Conventional with 19 protocol Continue antivirals, steroids, baricitinib day 5, vitamin replacement. Encourage proning and incentive spirometry. Intermittent check of inflammatory markers and chest x-ray for maintenance exams. 2. Acute COVID-19 pneumonitis. Plan as above. 3. Hyponatremia. From excessive free water intake. Resolved. Continue intermittent checks of chemistries. 4. History of complete heart block status post pacemaker. No acute cardiac issues. All other medical comorbidities are stable and nonactive conditions, will continue home medications at regular dose. Continue hypercoagulable prophylaxis. CODE STATUS: Full code.
[2021-04-10] MEDS: Acetaminophen 325 MG Tab PO PRN (13:55)
[2021-04-10] MEDS: Metoprolol Succinate 25 MG Tab.ER PO SCH (20:17)
[2021-04-10] MEDS: atorvaSTATin 40 MG Tab PO SCH (20:18)
[2021-04-11] MEDS: Enoxaparin 80 MG/0.8 ML Syringe SUBCUT SCH (08:24)
[2021-04-11] MEDS: Dexamethasone 10 MG/ML SDV IVPUSH SCH (08:24)
[2021-04-11] MEDS: Metoprolol Succinate 50 MG Tab.ER PO SCH (08:25)
[2021-04-11] MEDS: Aspirin 81 MG Tab.Chew PO SCH (08:26)
[2021-04-11] MEDS: Losartan 25 MG Tab PO SCH (08:26)
--- NOTE | 2021-04-11 11:57 | PCM.DCSUM1 ---
Discharge Summary - Hospital Course Free Text/Narrative:: 66-year-old female whose developed COVID-19 14 days ago started becoming fatigued around 11 days ago before admission. Patient was not vaccinated against COVID-19. Positive covid test on admission, 04/02 1. Acute hypoxemic respiratory failure. Secondary to acute COVID-19 pneumonitis. Continue to wean as tolerated. Keep SpO2 > 90% Continue RT consult. Conventional with Covid 19 protocol will discontinue baricitinib 4 mg daily and dexamethasone 6 mg IV daily. will strop Lovenox 80 mg twice daily today and discharge her on Eliquis. Encourage proning and incentive spirometry. Intermittent check of inflammatory markers and chest x-ray for maintenance exams. 2. Acute COVID-19 pneumonitis. Plan as above. 3. Hyponatremia, resolved From excessive free water intake. Continue intermittent checks of chemistries. 4. History of complete heart block status post pacemaker. No acute cardiac issues. Today patient is feeling fine. Vital signs are stable and acceptable. Patient is on 1L via nasal cannula. Patient would like to go home today. She refused to go to any facilities or someone to go to her house. Home oxygen assessment was performed by RT -patient needs 1 L at rest and 3L when walking. Patient will be discharged home to follow with the PCP in 3 days. Continue quarantine at home. Repeat a CBC, CMP, and electrolytes in 3 days when you see your PCP. Stop taking Eliquis and go to the ER immediately if bleeding occurs. Follow with PCP to see how long you should be on Eliquis. Do not drive until approval from MD. Continue home oxygen. Call PCP for medical issues. Diagnosis: Stroke: No - Discharge Data Discharge Date: 04/11/21 Discharge Disposition: Home, Self-Care 01 Condition: Good - Referral to Home Health Primary Care Physician: PCP Not In Area - Patient Summary/Data Consults: Consultations 04/02/21 20:49 Respiratory Care Assess and Treatment [CONS] Routine Recommended Follow-up Testing/Procedures: follow with PCP in 3 days. Continue quarantine at home. Repeat CBC, CMP, and e lectrolytes in 3 days when you see your PCP. Stop taking Eliquis and go to the ER immediately if bleeding occurs. Follow with PCP to see how long you should be on Eliquis. Do not drive until approval from MD. Continue home oxygen. Call PCP for medical issues. - Patient Instructions Diet: Heart Healthy Diet Activity: As Tolerated Driving: Do Not Drive - Discharge Plan *PRESCRIPTION DRUG MONITORING PROGRAM REVIEWED*: Not Applicable *COPY OF PRESCRIPTION DRUG MONITORING REPORT IN PATIENT VICENTE: Not Applicable Prescriptions/Med Rec: Apixaban [Eliquis] 5 mg PO BID #42 tablet Albuterol [Proventil HFA] 1 puff INH Q4H PRN #1 box PRN Reason: SOB/WHEEZING Home Medications: Home Meds Losartan [Cozaar] 25 mg PO DAILY 10/29/19 [History] Metoprolol Succinate [Toprol Xl] 50 mg PO DAILY 04/02/21 [History] atorvaSTATin Calcium [Lipitor] 40 mg PO DAILY 04/02/21 [History] Albuterol [Proventil HFA] 1 puff INH Q4H PRN #1 box 04/11/21 [Rx] Apixaban [Eliquis] 5 mg PO BID #42 tablet 04/11/21 [Rx] Aspirin 81 mg PO DAILY #30 tab.chew 04/11/21 [Rx] Oxygen Therapy Mode: Nasal Cannula Oxygen Flow Rate (L/min): 3 Patient Handouts: COVID-19, Home Oxygen Use, Adult, COVID-19: How to Protect Yourself and Others - CDC, Sepsis, Self Care, Adult Forms: ED Department Discharge Referrals: Eveline Khan MD [Ordering Only Provider] - ([place] [facility] will call you with appt. date and time. Suggest to see pcp in 3 days) - Discharge Summary/Plan Comment DC Time >30 min.: Yes Total # of Minutes for Discharge Time: 90mins - General Info Date of Service: 04/11/21 Admission Dx/Problem (Free Text: Admission Diagnosis/Problem Admission Diagnosis/Problem Pneumonia Subjective Update: He is feeling better. Does not have any new complaints. Denies fever, chills, nausea, vomiting,. His condition continues to improve. She is now on 1 L. No overnight events - Review of Systems General: Reports: No Symptoms HEENT: Reports: No Symptoms Pulmonary: Reports: Shortness of Breath Cardiovascular: Reports: No Symptoms Gastrointestinal: Reports: No Symptoms Genitourinary: Reports: No Symptoms Musculoskeletal: Reports: No Symptoms Skin: Reports: No Symptoms Neurological: Reports: No Symptoms Psychiatric: Reports: No Symptoms - Patient Data Vitals - Most Recent: Last Vital Signs Temp 36.3 C 04/11/21 07:30 Pulse 62 04/11/21 08:25 Resp 16 04/11/21 07:30 BP 104/59 L 04/11/21 08:26 Pulse Ox 87 L 04/11/21 10:27 Weight - Most Recent: 75.16 kg I&O - Last 24 hours: Intake & Output 04/10/21 04/11/21 04/11/21 22:59 06:59 14:59 Intake Total 1375 1200 Output Total 800 Balance 575 1200 Lab Results - Last 24 hrs: Laboratory Results - last 24 hr 04/11/21 04/11/21 Range/Units 06:39 06:39 WBC 10.54 H (3.98-10.04) K/mm3 RBC 5.24 H (3.98-5.22) M/mm3 Hgb 14.5 (11.2-15.7) gm/dl Hct 43.9 (34.1-44.9) % MCV 83.8 (79.4-94.8) fl MCH 27.7 (25.6-32.2) pg MCHC 33.0 (32.2-35.5) g/dl RDW Std Deviation 43.8 (36.4-46.3) fL Plt Count 542 H (182-369) K/mm3 MPV 9.7 (9.4-12.3) fl Neut % (Auto) 78.3 H (34.0-71.1) % Lymph % (Auto) 10.3 L (19.3-51.7) % [place] % (Auto) 10.3 (4.7-12.5) % Eos % (Auto) 0 L (0.7-5.8) Baso % (Auto) 0.1 (0.1-1.2) % Neut # (Auto) 8.24 H (1.56-6.13) K/mm3 Lymph # (Auto) 1.09 L (1.18-3.74) K/mm3 [place] # (Auto) 1.09 H (0.24-0.36) K/mm3 Eos # (Auto) 0.00 L (0.04-0.36) K/mm3 Baso # (Auto) 0.01 (0.01-0.08) K/mm3 Sodium 139 (136-145) mEq/L Potassium 4.6 (3.5-5.1) mEq/L Chloride 106 (98-107) mEq/L Carbon Dioxide 24 (21-32) mEq/L Anion Gap 13.6 (5-15) BUN 20 H (7-18) mg/dL Creatinine 0.9 (0.55-1.02) mg/dL Est Cr Clr Drug Dosing 58.34 mL/min Estimated GFR (MDRD) > 60 (>60) mL/min BUN/Creatinine Ratio 22.2 H (14-18) Glucose 82 (70-99) mg/dL Calcium 8.5 (8.5-10.1) mg/dL Total Bilirubin 0.7 (0.2-1.0) mg/dL AST 26 (15-37) U/L ALT 73 H (14-59) U/L Alkaline Phosphatase 107 (46-116) U/L C-Reactive Protein <0.2 (<1.0) mg/dL Total Protein 5.8 L (6.4-8.2) g/dl Albumin 2.9 L (3.4-5.0) g/dl Globulin 2.9 gm/dL Albumin/Globulin Ratio 1.0 (1-2) Med Orders - Current: Current Medications Acetaminophen (Acetaminophen 325 Mg Tab) 650 mg PO Q4H PRN PRN Reason: Pain (Mild 1-3)/fever Last Admin: 04/10/21 13:55 Dose: 650 mg Documented by: Albuterol (Albuterol 6.7 Gm Inhaler) 0 gm INH Q2H PRN PRN Reason: SOB/WHEEZING Albuterol/Ipratropium (Albuterol/Ipratropium 3.0-0.5 Mg/3 Ml Neb Soln) 3 ml NEB Q4HRRT PRN PRN Reason: SOB/WHEEZING Last Admin: 04/09/21 20:48 Dose: 3 ml Documented by: Aspirin (Aspirin 81 Mg Tab.Chew) 81 mg PO DAILY [facility] Last Admin: 04/11/21 08:26 Dose: 81 mg Documented by: Atorvastatin Calcium (Atorvastatin 40 Mg Tab) 40 mg PO BEDTIME [facility] Last Admin: 04/10/21 20:18 Dose: 40 mg Documented by: Baricitinib (Baricitinib 2 Mg Tab) 4 mg PO DAILY [facility] Stop: 04/16/21 09:01 Last Admin: 04/11/21 08:26 Dose: 4 mg Documented by: Enoxaparin Sodium (Enoxaparin 80 Mg/0.8 Ml Syringe) 80 mg SUBCUT BID [facility] Last Admin: 04/11/21 08:24 Dose: 80 mg Documented by: Losartan Potassium (Losartan 25 Mg Tab) 25 mg PO DAILY [facility] Last Admin: 04/11/21 08:26 Dose: 25 mg Documented by: Metoprolol Succinate (Metoprolol Succinate 50 Mg Tab.Er) 50 mg PO DAILY [facility] Last Admin: 04/11/21 08:25 Dose: 50 mg Documented by: Metoprolol Succinate (Metoprolol Succinate 25 Mg Tab.Er) 25 mg PO BEDTIME [facility] Last Admin: 04/10/21 20:17 Dose: 25 mg Documented by: Ondansetron HCl (Ondansetron 4 Mg/2 Ml Sdv) 4 mg IV Q6H PRN PRN Reason: Nausea/Vomiting Oxycodone HCl (Oxycodone 5 Mg Tab) 5 mg PO Q4H PRN PRN Reason: Pain (moderate 4-6) Polyethylene Glycol (Polyethylene Glycol 3350 Powder 17 Gm Packet) 17 gm PO DAILY PRN PRN Reason: Constipation Last Admin: 04/09/21 14:33 Dose: 17 gm Documented by: Sodium Chloride (Sodium Chloride 0.9% 10 Ml Syringe) 10 ml FLUSH ASDIRECTED PRN PRN Reason: Keep Vein Open Last Admin: 04/02/21 17:33 Dose: 10 ml Documented by: Temazepam (Temazepam 15 Mg Cap) 15 mg PO BEDTIME PRN PRN Reason: Sleep Last Admin: 04/07/21 21:01 Dose: 15 mg Documented by: Discontinued Medications Aspirin (Aspirin 325 Mg Tab.Ec) 325 mg PO DAILY [facility] Last Admin: 04/09/21 08:07 Dose: 325 mg Documented by: Dexamethasone (Dexamethasone 4 Mg/Ml 5 Ml Mdv) 6 mg IV ONETIME ONE Stop: 04/02/21 18:54 Last Admin: 04/02/21 19:31 Dose: 6 mg Documented by: Dexamethasone (Dexamethasone 10 Mg/Ml Sdv) 6 mg IVPUSH DAILY [facility] Stop: 04/11/21 09:01 Last Admin: 04/11/21 08:24 Dose: 6 mg Documented by: Enoxaparin Sodium (Enoxaparin 40 Mg/0.4 Ml Syringe) 40 mg SUBCUT DAILY [facility] Last Admin: 04/08/21 08:47 Dose: 40 mg Documented by: Remdesivir 200 mg/ Sodium (Chloride) 250 mls @ 250 mls/hr IV ONETIME ONE Stop: 04/02/21 21:59 Last Admin: 04/02/21 22:45 Dose: 250 mls/hr Documented by: Remdesivir 100 mg/ Sodium (Chloride) 100 mls @ 100 mls/hr IV Q24H [facility] Stop: 04/06/21 21:59 Last Admin: 04/06/21 21:22 Dose: 100 mls/hr Documented by: Magnesium Hydroxide (Magnesium Hydroxide 400 Mg/5 Ml Susp 30 Ml Cup) 30 ml PO ONETIME ONE Stop: 04/07/21 13:01 Metoprolol Succinate (Metoprolol Succinate 25 Mg Tab.Er) 25 mg PO ONETIME ONE Stop: 04/02/21 22:01 Last Admin: 04/02/21 22:50 Dose: 25 mg Documented by: Polyethylene Glycol (Polyethylene Glycol 3350 Powder 17 Gm Packet) 17 gm PO ONETIME ONE Stop: 04/06/21 11:12 Last Admin: 04/06/21 12:28 Dose: 17 gm Documented by: - Exam Physical Findings Comments:: General: Alert, Oriented, Cooperative HEENT: Pupils Equal, Pupils Reactive, EOMI Neck: Trachea Midline, No JVD, No Thyromegaly Lungs: Normal Respiratory Effort, Decreased Breath Sounds Cardiovascular: Regular Rate, Regular Rhythm GI/Abdominal Exam: Normal Bowel Sounds, Soft, Non-Tender, No Organomegaly Extremities: Normal Inspection, Normal Range of Motion, Non-Tender Skin: Warm, Dry, Intact Neurological: No New Focal Deficit, Normal Speech, Normal Tone, Strength Equal Bilateral, Reflexes Equal Bilateral, Sensation Intact Psy/Mental Status: Alert, Normal Affect, Normal Mood
== END 2021-04-11 14:30 | disposition home or self-care (01) | DRG 177 ==
LOC: JD.ED 15:33 → JD.MS 19:51
PROVIDERS: ADMIT Family Medicine; ATTEND Family Medicine
PROC: 3E0333Z Introduction of Anti-inflammatory into Peripheral Vein, Percutaneous Approach (ICD-10-PCS; principal; 2021-04-02)
PROC: XW0DXM6 Introduction of Baricitinib into Mouth and Pharynx, External Approach, New Technology Group 6 (ICD-10-PCS; 2021-04-02)
PROC: XW033E5 Introduction of Remdesivir Anti-infective into Peripheral Vein, Percutaneous Approach, New Technology Group 5 (ICD-10-PCS; 2021-04-02)
DX: U07.1 COVID-19 (principal); J12.82 Pneumonia due to coronavirus disease 2019; R09.02 Hypoxemia; J96.01 Acute respiratory failure with hypoxia; H40.9 Unspecified glaucoma; E87.1 Hypo-osmolality and hyponatremia; I10 Essential (primary) hypertension; I44.2 Atrioventricular block, complete; Z95.0 Presence of cardiac pacemaker; Z79.82 Long term (current) use of aspirin; Z79.01 Long term (current) use of anticoagulants; Z79.899 Other long term (current) drug therapy; Z91.040 Latex allergy status; Z88.7 Allergy status to serum and vaccine; Z88.8 Allergy status to other drugs, medicaments and biological substances; E78.00 Pure hypercholesterolemia, unspecified; Z86.73 Personal history of transient ischemic attack (TIA), and cerebral infarction without residual deficits; Z98.49 Cataract extraction status, unspecified eye
CPT/HCPCS: 0240U; 36415; 71045; 80048; 80053; 80076; 82728; 83615; 83735; 84100; 85025; 85379; 86140; 93005; 94640; 94667; 94668; 94762; 96374; 99285; A9270-GY; J1100; J1650; J7050; J7620-GY

== ENCOUNTER 2023-09-04 16:31 | Emergency (ER) | payer MEDICARE, OTHER ==
[2023-09-04] MEDS: Sodium Chloride 0.9% 10 ML Syringe FLUSH PRN (16:58)
[2023-09-04 17:42] LABS: BASOPHILS PERCENT AUTO 0.5 % (0.0-1.0); EOSINOPHILS ABSOLUTE AUTO 0.1 K/mm3 (0.0-0.4); EOSINOPHILS PERCENT AUTO 1.3 % (0.0-6.0); HEMATOCRIT 43.9 % (37.0-47.0); HEMOGLOBIN 14.5 gm/dl (12.0-16.0); IMMATURE GRAN ABSOLUTE AUTO 0.02 K/mm3 (0.00-0.05); IMMATURE GRAN PERCENT AUTO 0.2 % (0.0-0.4); LYMPHOCYTES ABSOLUTE AUTO 2.6 K/mm3 (1.0-4.8); LYMPHOCYTES PERCENT AUTO 31.3 % (24.0-44.0); MEAN CORPUSCULAR HEMOGLOBIN 27.8 pg (28.0-32.0); MEAN CORPUSCULAR VOLUME 84.1 fl (83.0-99.0); MEAN PLATELET VOLUME 10.7 fl (9.4-12.3); MONOCYTES ABSOLUTE AUTO 0.6 K/mm3 (0.0-0.8); MONOCYTES PERCENT AUTO 7.6 % (0.0-8.0); NEUTROPHILS ABSOLUTE AUTO 4.9 K/mm3 (1.8-7.7); NEUTROPHILS PERCENT AUTO 59.1 % (41.0-71.0); PLATELET COUNT,PLT 262 K/mm3 (150-400); RED BLOOD CELL COUNT 5.22 M/mm3 (4.10-5.30); WHITE BLOOD CELL COUNT,WBC 8.31 K/mm3 (3.9-11.3)
[2023-09-04 18:07] LABS: A/G RATIO 1.2 (1-2); ALBUMIN 3.7 g/dl (3.4-5.0); ANION GAP 13.8 (5-15); BILIRUBIN TOTAL 0.4 mg/dL (0.2-1.0); C-REACTIVE PROTEIN 0.06 mg/dL (<0.30); CALCIUM 9.1 mg/dL (8.5-10.1); EST CRCL DRUG DOSING (CG) 51.1 mL/min; POTASSIUM,K 3.8 mEq/L (3.5-5.1); PROTEIN TOTAL,TP 6.7 g/dl (6.4-8.2)
[2023-09-04] MEDS: Iopamidol 755 Mg/ML 100 ML Bottle IVPUSH ONE (18:20)
[2023-09-04] MEDS ORDERED: Sodium Chloride 0.9% 100 ML IV SCH (18:30)
== END 2023-09-04 20:22 | disposition home or self-care (01) ==
LOC: JD.ED 16:31
DX: R07.89 Other chest pain (principal); I10 Essential (primary) hypertension; Z86.73 Personal history of transient ischemic attack (TIA), and cerebral infarction without residual deficits; Z86.16 Personal history of COVID-19; Z79.899 Other long term (current) drug therapy; Z79.82 Long term (current) use of aspirin; Z88.8 Allergy status to other drugs, medicaments and biological substances; Z88.7 Allergy status to serum and vaccine; Z91.040 Latex allergy status
CPT/HCPCS: 36415; 71046; 71275; 80053; 84484; 85025; 85379; 86140; 93005; 99285; J3490; Q9967; 93010; 99284

== ENCOUNTER 2024-12-18 12:27 | Emergency (ER) | payer OTHER ==
[2024-12-18 13:05] LABS: BASOPHILS ABSOLUTE AUTO 0.0 K/mm3 (0.0-0.2); BASOPHILS PERCENT AUTO 0.5 % (0.0-1.0); EOSINOPHILS ABSOLUTE AUTO 0.1 K/mm3 (0.0-0.4); EOSINOPHILS PERCENT AUTO 1.1 % (0.0-6.0); IMMATURE GRAN ABSOLUTE AUTO 0.01 K/mm3 (0.00-0.05); IMMATURE GRAN PERCENT AUTO 0.1 % (0.0-0.4); LYMPHOCYTES ABSOLUTE AUTO 2.1 K/mm3 (1.0-4.8); LYMPHOCYTES PERCENT AUTO 28.1 % (24.0-44.0); MEAN PLATELET VOLUME 10.7 fl (9.4-12.3); MONOCYTES ABSOLUTE AUTO 0.6 K/mm3 (0.0-0.8); MONOCYTES PERCENT AUTO 8.2 % (0.0-8.0); NEUTROPHILS ABSOLUTE AUTO 4.7 K/mm3 (1.8-7.7); NEUTROPHILS PERCENT AUTO 62.0 % (41.0-71.0); NRBC ABSOLUTE 0.00 (0.00-0.02); NRBC PERCENT 0.0 % (0.0-0.2); PLATELET COUNT,PLT 256 K/mm3 (150-400); RED BLOOD CELL COUNT 5.21 M/mm3 (4.10-5.30); WHITE BLOOD CELL COUNT,WBC 7.55 K/mm3 (3.9-11.3)
[2024-12-18 13:36] LABS: A/G RATIO 1.3 (1-2); ALANINE AMINOTRANSFERASE,ALT 44.0 U/L (14-59); ASPARTATE AMNIOTRANSFERASE,AST 28.0 U/L (15-37); BILIRUBIN TOTAL 0.5 mg/dL (0.2-1.0); BLOOD UREA NITROGEN,BUN 11.0 mg/dL (7-18); CARBON DIOXIDE,CO2 27.0 mEq/L (21-32); CHLORIDE,CL 107.0 mEq/L (98-107); CREATININE 1.1 mg/dL (0.55-1.02); EST CRCL DRUG DOSING (CG) 45.82 mL/min; ESTIMATED GFR 55.0 mL/min (>60); GLUCOSE RANDOM 102.0 mg/dL (70-99); POTASSIUM,K 4.0 mEq/L (3.5-5.1); PROTEIN TOTAL,TP 6.8 g/dl (6.4-8.2); SODIUM,NA 143.0 mEq/L (136-145); TROPONIN I HIGH SENSITIVITY 9.0 pg/mL (<=51)
[2024-12-18 13:38] LABS: INR 1.0
== END 2024-12-18 14:45 | disposition home or self-care (01) ==
LOC: JD.ED 12:27
DX: E86.9 Volume depletion, unspecified (principal); I10 Essential (primary) hypertension; E78.00 Pure hypercholesterolemia, unspecified; Z88.8 Allergy status to other drugs, medicaments and biological substances; Z91.040 Latex allergy status; Z79.899 Other long term (current) drug therapy; Z79.82 Long term (current) use of aspirin; Z86.16 Personal history of COVID-19; Z86.73 Personal history of transient ischemic attack (TIA), and cerebral infarction without residual deficits
CPT/HCPCS: 36415; 70450; 70450-26; 80053; 82947; 83690; 83735; 84484; 85025; 85610; 93005; 93010; 99283; 99284